=== PATIENT | male | born 1955 | race African-American/Black ===

== ENCOUNTER 2021-05-13 21:24 | Emergency (ER) | payer OTHER ==
[~2021-05-13] VITALS: Ht 190.5 cm; Wt 154.2 kg
[~2021-05-13 21:24] MED LIST: ENAL20TA8; GLIP10TA9; GLIP1TAB; WARF5TAB71
[2021-05-13 21:44] VITALS: BP 200/103
[2021-05-13 22:56] LABS: Basophils # (auto) 0.1 10 ^3/uL (0-0.2); Eosinophils # (auto) 0.1 10 ^3/uL (0-0.8); Eosinophils % (auto) 1.2 % (0.0-7.0); Hematocrit 39.9 % (41.0-53.0); Hemoglobin 13.2 g/dL (13.5-17.5); Lymphocytes # (auto) 1.4 10 ^3/uL (0.4-5.4); Lymphocytes % (auto) 21.1 % (10.0-50.0); Mean Corpuscular Hemoglobin 26.6 pg (28.0-32.0); Mean Corpuscular Hgb Conc. 33.1 g/dL (32.0-36.0); Mean Corpuscular Volume 80.5 fL (80.0-100.0); Monocytes # (auto) 0.4 10 ^3/uL (0-1.3); Monocytes % (auto) 6.6 % (0.0-12.0); Neutrophils # (auto) 4.6 10 ^3/uL (1.6-8.6); Neutrophils % (auto) 70.1 % (37.0-80.0); Nucleated Red Blood Cells % 0.1 %; Red Blood Cells 4.95 10^6/uL (4.5-5.90); Red Cell Distribution Width 18.3 % (11.8-14.3); White Blood Cell 6.6 10^3/uL (4.4-10.8)
[2021-05-13 23:16] LABS: Albumin 3.2 g/dL (3.4-5.0); Anion Gap 7 (5-15); Blood Urea Nitrogen 24 mg/dL (7-18); Calcium 8.5 mg/dL (8.5-10.1); Carbon Dioxide 23 mmol/L (21-32); Chloride 109 mmol/L (98-107); Glucose 218 mg/dL (74-106); Sodium 139 mmol/L (136-145)
[2021-05-13 23:18] LABS: Alanine Aminotransferase 58 U/L (16-61); Aspartate Aminotransferase 32 U/L (15-37); BUN/Creatinine Ratio 18.2; GFR African American 70 mL/min; GFR Non-African American 58 mL/min
[2021-05-13 23:33] LABS: Alkaline Phosphatase 112 U/L (45-117); Bilirubin, Total 0.4 mg/dL (0.2-1.0); Total Protein 7.5 g/dL (6.4-8.2)
[2021-05-14] MEDS ORDERED: GLIP10TA9 PO (02:08)
[2021-05-14] MEDS ORDERED: METF-372 PO (02:08)
[2021-05-14] MEDS ORDERED: LANC-347 XX (02:08)
== END 2021-05-14 02:21 | disposition home or self-care (01) ==
LOC: ER 21:25
DX: E11.65 Type 2 diabetes mellitus with hyperglycemia (principal); R20.2 Paresthesia of skin; R07.89 Other chest pain; E78.5 Hyperlipidemia, unspecified; I10 Essential (primary) hypertension
CPT/HCPCS: 36415; 70450; 71045; 80053; 83880; 84484; 85025; 93005

== ENCOUNTER → 2022-09-10 | Day surgery (SDC) | payer OTHER ==
[~2022-09-10] VITALS: Ht 190.5 cm; Wt 158.8 kg
[~2022-09-10] MED LIST changes: +AMIO200T33 PO; +ASPI-543 PO; +GABA100C9 PO; -GLIP10TA9; +GLIP10TA9 PO; -GLIP1TAB; +LANC-347 XX; +LIDOCAINE VISCOUS 2% 15ML UD MT ONE; +METF-372 PO; +MIDAZOLAM HCL 2MG/2ML 2ml VIAL (1mg/ml) IV ONE; +PRAV20TA3 PO; -WARF5TAB71; +WARF5TAB71 PO; +diphenhdrAMINE HCL 50 MG/1 ML VL IV ONE; +fentaNYL CITRATE 100 MCG/2 ML VL IV ONE
== END | disposition home or self-care (01) ==
LOC: CATH 07:20
PROVIDERS: ATTEND Internal Medicine
DX: I48.92 Unspecified atrial flutter (principal); I08.3 Combined rheumatic disorders of mitral, aortic and tricuspid valves; E78.00 Pure hypercholesterolemia, unspecified; E11.9 Type 2 diabetes mellitus without complications; Z79.899 Other long term (current) drug therapy; Z20.822 Contact with and (suspected) exposure to COVID-19
CPT/HCPCS: 93312; J2250; J3010; U0003; 99152

== ENCOUNTER 2022-11-05 07:12 | Day surgery (SDC) | payer OTHER ==
[~2022-11-05] VITALS: Ht 193 cm; Wt 154.5 kg
[~2022-11-05 07:12] MED LIST changes: -LIDOCAINE VISCOUS 2% 15ML UD MT ONE; -MIDAZOLAM HCL 2MG/2ML 2ml VIAL (1mg/ml) IV ONE; -WARF5TAB71 PO; -diphenhdrAMINE HCL 50 MG/1 ML VL IV ONE; -fentaNYL CITRATE 100 MCG/2 ML VL IV ONE
[2022-11-05] MEDS ORDERED: diphenhdrAMINE HCL 50 MG/1 ML VL IV ONE (07:45)
[2022-11-05] MEDS ORDERED: LIDOCAINE VISCOUS 2% 15ML UD MT ONE (07:45)
[2022-11-05] MEDS ORDERED: fentaNYL CITRATE 100 MCG/2 ML VL IV ONE (07:45)
[2022-11-05] MEDS ORDERED: MIDAZOLAM HCL 2MG/2ML 2ml VIAL (1mg/ml) IV ONE (07:45)
[2022-11-05 08:37] VITALS: BP 172/82
[2022-11-05 08:46] VITALS: BP 160/81
[2022-11-05 09:01] VITALS: BP 179/88
[2022-11-05 09:31] VITALS: BP 161/83
[2022-11-05] MEDS ORDERED: APIX5TAB PO (09:40)
[2022-11-05 09:41] VITALS: BP 147/84
[2022-11-05 09:57] VITALS: BP 161/78
== END 2022-11-05 10:14 | disposition home or self-care (01) ==
LOC: CATH 07:12
PROVIDERS: ATTEND Internal Medicine
DX: I48.92 Unspecified atrial flutter (principal); I08.0 Rheumatic disorders of both mitral and aortic valves
CPT/HCPCS: 92960; 93005; 93312; J2250; J3010; 99152

== ENCOUNTER 2023-12-20 12:23 | Emergency (ER) | payer OTHER ==
[~2023-12-20] VITALS: Ht 190.5 cm; Wt 159.3 kg
[~2023-12-20 12:23] MED LIST changes: +APIX5TAB PO; +ENAL1TAB48; -ENAL20TA8; +GABA-1308 PO; -GABA100C9 PO
[2023-12-20 13:32] VITALS: BP 156/93; PULSE 84; RESP 18; TEMP 98.4; O2SAT 100
[2023-12-20] MEDS ORDERED: HYDR-4798 PO (14:18)
== END 2023-12-20 14:30 | disposition home or self-care (01) ==
LOC: ER 12:28
DX: S83.91XA Sprain of unspecified site of right knee, initial encounter (principal); M17.11 Unilateral primary osteoarthritis, right knee; E11.9 Type 2 diabetes mellitus without complications; E78.5 Hyperlipidemia, unspecified; I10 Essential (primary) hypertension; W18.39XA Other fall on same level, initial encounter; Y93.89 Activity, other specified; Y92.89 Other specified places as the place of occurrence of the external cause; Y99.8 Other external cause status
CPT/HCPCS: 73562

== ENCOUNTER 2024-01-18 14:06 | Inpatient (IN) | payer OTHER ==
[~2024-01-18] VITALS: Ht 190.5 cm; Wt 159.4 kg
[~2024-01-18 14:06] MED LIST changes: +HYDR-4798 PO
[2024-01-18 15:30] VITALS: PULSE 105; RESP 18; O2SAT 98
[2024-01-18 15:32] LABS: Basophils # (auto) 0 10 ^3/uL (0-0.2); Basophils % (auto) 0.4 % (0.0-2.0); Eosinophils # (auto) 0 10 ^3/uL (0-0.8); Eosinophils % (auto) 0.4 % (0.0-7.0); Hematocrit 38.1 % (41.0-53.0); Hemoglobin 12.5 g/dL (13.5-17.5); Lymphocytes # (auto) 1.2 10 ^3/uL (0.4-5.4); Lymphocytes % (auto) 12.7 % (10.0-50.0); Mean Corpuscular Hemoglobin 27.2 pg (28.0-32.0); Mean Corpuscular Hgb Conc. 32.9 g/dL (32.0-36.0); Mean Corpuscular Volume 82.7 fL (80.0-100.0); Monocytes # (auto) 0.7 10 ^3/uL (0-1.3); Monocytes % (auto) 8.1 % (0.0-12.0); Neutrophils # (auto) 7.1 10 ^3/uL (1.6-8.6); Neutrophils % (auto) 78.4 % (37.0-80.0); Red Blood Cells 4.61 10^6/uL (4.5-5.90); Red Cell Distribution Width 17.7 % (11.8-14.3); White Blood Cell 9.1 10^3/uL (4.4-10.8)
[2024-01-18 15:46] LABS: Alanine Aminotransferase 16 U/L (7-40); Alkaline Phosphatase 86 U/L (46-116)
[2024-01-18 15:47] LABS: Albumin 4.3 g/dL (3.2-4.8); Anion Gap 12 (5-15); Aspartate Aminotransferase 12 U/L (13-40); BUN/Creatinine Ratio 10.8 (10.0-20.0); Bilirubin, Total 0.6 mg/dL (0.2-1.0); Blood Urea Nitrogen 13 mg/dL (9-23); Calcium 9.5 mg/dL (8.5-10.1); Carbon Dioxide 20 mmol/L (20-30); Chloride 107 mmol/L (98-107); Glucose 171 mg/dL (74-106); Potassium 3.6 mmol/L (3.5-5.1); Sodium 139 mmol/L (136-145); Total Protein 7.5 g/dL (5.7-8.2)
[2024-01-18] MEDS: VANCOMYCIN 1GM/200ML 200 ML IV ONE (15:48)
[2024-01-18 15:56] LABS: Lactic Acid w/Reflex 2.7 mmol/L (0.4-2.0)
[2024-01-18 16:13] LABS: Erythrocyte Sedimentation Rate 76 mm/hr (0-20)
[2024-01-18] MEDS: IOHEXOL 300 MG/ML 100ML BOTTLE IJ ONE (16:50)
[2024-01-18] MEDS: PIPERACILLIN-TAZOB 3.375GM 100 ML IV ONE (17:48)
[2024-01-18] MEDS: CLINDAMYCIN 900MG IV 50 ML IV ONE (18:55)
[2024-01-18] MEDS: SODIUM CHLORIDE 0.9% 1,000 ML IV ONE (18:55)
[2024-01-18] MEDS: HYDROcodone-ACET 10/325MG TAB PO ONE (19:02)
[2024-01-18 20:20] LABS: Urine Bacteria None Seen /hpf (None Seen)
[2024-01-18] MEDS ORDERED: NITROGLYCERIN 0.4 MG SL TAB SL PRN (21:00)
[2024-01-18] MEDS ORDERED: DEXTROSE (50%) 50ML SYRG IV PRN (21:00)
[2024-01-18] MEDS ORDERED: MORPHINE SULFATE INJ 2 MG/ml SYRG IV PRN (21:00)
[2024-01-18] MEDS ORDERED: ACETAMINOPHEN 325 MG TAB PO PRN (21:00)
[2024-01-18] MEDS ORDERED: ONDANSETRON HCL 4 MG/2 ML VIAL IV PRN (21:00)
[2024-01-18] MEDS ORDERED: VANCOMYCIN PER PHARMACY 0 MG IV SCH (21:00)
[2024-01-18 21:08] LABS: Urine Blood Negative /uL (Negative); Urine Clarity Clear (Clear); Urine Color Yellow (Yellow); Urine Mucus FEW (None Seen); Urine Protein, UAD 1+ (Negative); Urine Urobilinogen Normal (Negative); Urine WBC 1 /hpf (0 - 3)
[2024-01-18 21:09] LABS: Urine Specific Gravity > 1.035 (1.001-1.035)
[2024-01-18] MEDS: SODIUM CHLORIDE 0.9% 1,000 ML IV SCH (21:59)
[2024-01-18] MEDS ORDERED: PIPERACILLIN-TAZOB 3.375GM 100 ML IV SCH (22:00)
[2024-01-18 22:34] VITALS: PULSE 105; RESP 18; O2SAT 98
[2024-01-18 23:29] VITALS: BP 148/71; PULSE 84; RESP 17; TEMP 97.7; O2SAT 99
[2024-01-19] VITALS (8 sets, daily range): BP systolic 117–162; BP diastolic 62–79; PULSE 76–87; RESP 18–20; TEMP 97.7–98.4; O2SAT 96–100
[2024-01-19] MEDS: ACCU-CHEK COMFORT CURVE STRIP VI SCH (00:48)
[2024-01-19] MEDS: InsuLIN REG 1unit/0.01ml Soln (100units/ml) SC SCH (00:48)
[2024-01-19] MEDS ORDERED: AML5T PO (01:17)
[2024-01-19] MEDS: PIPERACILLIN-TAZOB 3.375GM 100 ML IV SCH (01:25)
[2024-01-19] MEDS: VANCOMYCIN 1GM/200ML 200 ML IV ONE (03:19)
[2024-01-19 05:44] LABS: Basophils # (auto) 0.1 10 ^3/uL (0-0.2); Basophils % (auto) 0.7 % (0.0-2.0); Eosinophils # (auto) 0.2 10 ^3/uL (0-0.8); Eosinophils % (auto) 2.4 % (0.0-7.0); Hematocrit 32.2 % (41.0-53.0); Hemoglobin 10.9 g/dL (13.5-17.5); Mean Corpuscular Hemoglobin 27.6 pg (28.0-32.0); Mean Corpuscular Volume 81.2 fL (80.0-100.0); Monocytes # (auto) 0.8 10 ^3/uL (0-1.3); Monocytes % (auto) 11.4 % (0.0-12.0); Neutrophils # (auto) 5.1 10 ^3/uL (1.6-8.6); Neutrophils % (auto) 71.5 % (37.0-80.0); Red Blood Cells 3.96 10^6/uL (4.5-5.90); Red Cell Distribution Width 18.1 % (11.8-14.3); White Blood Cell 7.1 10^3/uL (4.4-10.8)
[2024-01-19 05:57] LABS: Anion Gap 7 (5-15); Carbon Dioxide 25 mmol/L (20-30); Chloride 107 mmol/L (98-107); Potassium 3.2 mmol/L (3.5-5.1); Sodium 139 mmol/L (136-145)
[2024-01-19 05:59] LABS: Calcium 9.1 mg/dL (8.7-10.4)
[2024-01-19 06:03] LABS: BUN/Creatinine Ratio 14.6 (10.0-20.0); Blood Urea Nitrogen 15 mg/dL (9-23); Glucose 113 mg/dL (74-106)
[2024-01-19] MEDS: VANCOMYCIN 1GM/200ML 200 ML IV SCH (09:30)
[2024-01-19] MEDS ORDERED: VANCOMYCIN 1GM/200ML 200 ML IV SCH (10:00)
[2024-01-19 13:30] LABS: Triglycerides 81 mg/dL (< 150)
[2024-01-19 13:31] LABS: LDL Cholesterol 26 mg/dL (< 100)
[2024-01-19 13:32] LABS: Cholesterol 83 mg/dL (< 200); HDL Cholesterol 40 mg/dL (40-59)
[2024-01-19] MEDS: ATORVASTATIN 20 MG TAB PO SCH (21:47)
[2024-01-19] MEDS: HYDROcodone-ACET 5/325MG TAB PO PRN (21:48)
[2024-01-19] MEDS: LISINOPRIL 20 MG TAB PO SCH (21:48)
[2024-01-20] VITALS (10 sets, daily range): BP systolic 126–175; BP diastolic 68–82; PULSE 63–86; RESP 12–20; TEMP 96.9–98.6; O2SAT 0–100
[2024-01-20 06:06] LABS: Basophils # (auto) 0 10 ^3/uL (0-0.2); Eosinophils # (auto) 0.1 10 ^3/uL (0-0.8); Eosinophils % (auto) 2.6 % (0.0-7.0); Hematocrit 32.8 % (41.0-53.0); Lymphocytes # (auto) 0.9 10 ^3/uL (0.4-5.4); Lymphocytes % (auto) 17.6 % (10.0-50.0); Mean Corpuscular Hemoglobin 27.2 pg (28.0-32.0); Mean Corpuscular Hgb Conc. 33.4 g/dL (32.0-36.0); Mean Corpuscular Volume 81.3 fL (80.0-100.0); Monocytes # (auto) 0.5 10 ^3/uL (0-1.3); Monocytes % (auto) 9.4 % (0.0-12.0); Neutrophils # (auto) 3.5 10 ^3/uL (1.6-8.6); Neutrophils % (auto) 69.4 % (37.0-80.0); Nucleated Red Blood Cells % 0.1 %; Red Blood Cells 4.04 10^6/uL (4.5-5.90); Red Cell Distribution Width 17.5 % (11.8-14.3)
[2024-01-20 06:26] LABS: Chloride 108 mmol/L (98-107); Potassium 3.4 mmol/L (3.5-5.1); Sodium 139 mmol/L (136-145)
[2024-01-20 06:27] LABS: Anion Gap 6 (5-15); Calcium 8.7 mg/dL (8.5-10.1); Carbon Dioxide 25 mmol/L (20-30)
[2024-01-20 06:32] LABS: BUN/Creatinine Ratio 11.2 (10.0-20.0); Blood Urea Nitrogen 10 mg/dL (9-23); Glucose 148 mg/dL (74-106)
[2024-01-20] MEDS ORDERED: fentaNYL CITRATE 100 MCG/2 ML VL ONE (13:31)
[2024-01-20] MEDS ORDERED: MIDAZOLAM HCL 2MG/2ML 2ml VIAL (1mg/ml) ONE (13:32)
[2024-01-20] MEDS ORDERED: PROPOFOL 10 MG/ML 20 ML IV ONE (14:48)
[2024-01-20] MEDS ORDERED: HYDROmorphone HCL 2 MG/ML VL/or syr IV PRN ×2 (15:00)
[2024-01-21] VITALS (9 sets, daily range): BP systolic 130–176; BP diastolic 69–79; PULSE 68–102; RESP 17–20; TEMP 97.1–98.6; O2SAT 92–100
[2024-01-21 07:04] LABS: Basophils # (auto) 0 10 ^3/uL (0-0.2); Basophils % (auto) 0.9 % (0.0-2.0); Eosinophils # (auto) 0.1 10 ^3/uL (0-0.8); Hematocrit 31.9 % (41.0-53.0); Hemoglobin 10.8 g/dL (13.5-17.5); Lymphocytes # (auto) 0.7 10 ^3/uL (0.4-5.4); Mean Corpuscular Hemoglobin 27.1 pg (28.0-32.0); Mean Corpuscular Hgb Conc. 33.9 g/dL (32.0-36.0); Mean Corpuscular Volume 80.1 fL (80.0-100.0); Monocytes # (auto) 0.5 10 ^3/uL (0-1.3); Monocytes % (auto) 9.8 % (0.0-12.0); Neutrophils # (auto) 3.8 10 ^3/uL (1.6-8.6); Neutrophils % (auto) 74.3 % (37.0-80.0); Nucleated Red Blood Cells % 0.1 %; Red Blood Cells 3.99 10^6/uL (4.5-5.90); Red Cell Distribution Width 17.1 % (11.8-14.3); White Blood Cell 5.1 10^3/uL (4.4-10.8)
[2024-01-21 07:15] LABS: Anion Gap 6 (5-15); Carbon Dioxide 24 mmol/L (20-30); Chloride 108 mmol/L (98-107); Potassium 3.6 mmol/L (3.5-5.1); Sodium 138 mmol/L (136-145)
[2024-01-21 07:16] LABS: Calcium 8.6 mg/dL (8.5-10.1)
[2024-01-21 07:23] LABS: BUN/Creatinine Ratio 9.3 (10.0-20.0); Blood Urea Nitrogen 8 mg/dL (9-23); Glucose 197 mg/dL (74-106)
[2024-01-21] MEDS: hydrALAZINE HCL 20 MG/ML VL IV PRN (12:04)
[2024-01-21] MEDS: DOCUSATE SOD 100 MG CAP PO PRN (12:04)
[2024-01-22] VITALS (8 sets, daily range): BP systolic 132–155; BP diastolic 71–82; PULSE 71–90; RESP 15–20; TEMP 97.6–98.3; O2SAT 93–100
[2024-01-22 06:57] LABS: Anion Gap 6 (5-15); Calcium 8.8 mg/dL (8.7-10.4); Carbon Dioxide 24 mmol/L (20-30); Chloride 109 mmol/L (98-107); Potassium 3.6 mmol/L (3.5-5.1); Sodium 139 mmol/L (136-145)
[2024-01-22 07:03] LABS: BUN/Creatinine Ratio 6.7 (10.0-20.0); Blood Urea Nitrogen 6 mg/dL (9-23); Glucose 196 mg/dL (74-106)
[2024-01-22 07:05] LABS: Basophils # (auto) 0 10 ^3/uL (0-0.2); Basophils % (auto) 1.1 % (0.0-2.0); Eosinophils # (auto) 0.1 10 ^3/uL (0-0.8); Eosinophils % (auto) 2.6 % (0.0-7.0); Hematocrit 31.2 % (41.0-53.0); Hemoglobin 10.8 g/dL (13.5-17.5); Lymphocytes # (auto) 0.7 10 ^3/uL (0.4-5.4); Mean Corpuscular Hemoglobin 27.6 pg (28.0-32.0); Mean Corpuscular Hgb Conc. 34.5 g/dL (32.0-36.0); Mean Corpuscular Volume 80.2 fL (80.0-100.0); Monocytes # (auto) 0.4 10 ^3/uL (0-1.3); Monocytes % (auto) 8.7 % (0.0-12.0); Neutrophils # (auto) 3.1 10 ^3/uL (1.6-8.6); Neutrophils % (auto) 70.6 % (37.0-80.0); Red Blood Cells 3.89 10^6/uL (4.5-5.90); Red Cell Distribution Width 17.1 % (11.8-14.3); White Blood Cell 4.3 10^3/uL (4.4-10.8)
[2024-01-22] MEDS: ROPIVACAINE 0.5% (5MG/ML) 20ML AMPULE IJ ONE (07:32)
[2024-01-22] MEDS: ONDANSETRON HCL 4 MG/2 ML VIAL IV ONE (07:32)
[2024-01-22] MEDS: amLODIPine BESYLATE 5 MG TAB PO SCH (09:03)
[2024-01-22] MEDS: ENALAPRIL MALEATE 10 MG TAB PO SCH (09:04)
[2024-01-22] MEDS ORDERED: amLODIPine BESYLATE 5 MG TAB PO SCH (10:00)
[2024-01-22] MEDS ORDERED: ENALAPRIL MALEATE 10 MG TAB PO SCH (10:00)
[2024-01-23] VITALS (8 sets, daily range): BP systolic 122–175; BP diastolic 68–87; PULSE 65–89; RESP 16–20; TEMP 98–98.4; O2SAT 96–100
[2024-01-23] MEDS: VANCOMYCIN 1GM/200ML 200 ML IV SCH (05:25)
[2024-01-23 07:09] LABS: Anion Gap 5 (5-15); Calcium 8.7 mg/dL (8.5-10.1); Carbon Dioxide 25 mmol/L (20-30); Chloride 109 mmol/L (98-107); Potassium 3.7 mmol/L (3.5-5.1); Sodium 139 mmol/L (136-145)
[2024-01-23 07:15] LABS: BUN/Creatinine Ratio 7.3 (10.0-20.0); Blood Urea Nitrogen 7 mg/dL (9-23); Glucose 195 mg/dL (74-106)
[2024-01-23 07:16] LABS: Basophils # (auto) 0.1 10 ^3/uL (0-0.2); Basophils % (auto) 1.3 % (0.0-2.0); Eosinophils # (auto) 0.1 10 ^3/uL (0-0.8); Eosinophils % (auto) 2.3 % (0.0-7.0); Hematocrit 32.5 % (41.0-53.0); Lymphocytes # (auto) 0.8 10 ^3/uL (0.4-5.4); Lymphocytes % (auto) 18.1 % (10.0-50.0); Mean Corpuscular Hemoglobin 27.1 pg (28.0-32.0); Mean Corpuscular Hgb Conc. 33.9 g/dL (32.0-36.0); Mean Corpuscular Volume 79.9 fL (80.0-100.0); Monocytes # (auto) 0.3 10 ^3/uL (0-1.3); Monocytes % (auto) 7.6 % (0.0-12.0); Neutrophils # (auto) 3.2 10 ^3/uL (1.6-8.6); Neutrophils % (auto) 70.7 % (37.0-80.0); Red Blood Cells 4.07 10^6/uL (4.5-5.90); Red Cell Distribution Width 17.8 % (11.8-14.3); White Blood Cell 4.5 10^3/uL (4.4-10.8)
[2024-01-23] MEDS: MORPHINE SULFATE INJ 2 MG/ml SYRG IV PRN (10:44)
[2024-01-24] VITALS (7 sets, daily range): BP systolic 150–186; BP diastolic 80–103; PULSE 76–91; RESP 14–20; TEMP 97.9–99; O2SAT 93–100
[2024-01-24 10:03] LABS: INR 1.05 (0.9-1.15); Partial Thromboplastin Time 26.2 SEC (24.5-34.5); Prothrombin Time 11.1 sec (9.3-11.8)
[2024-01-24] MEDS ORDERED: METR-344 PO (15:22)
[2024-01-24] MEDS ORDERED: CEPH500C PO (15:22)
[2024-01-24] MEDS ORDERED: HYDR-4902 PO (15:28)
== END 2024-01-24 19:00 | disposition home health service (06) | DRG 571 ==
LOC: ER 14:06 → TELE 21:17 → TELE-WESTW 23:08
PROVIDERS: ADMIT Nurse Practitioner Family; ATTEND Internal Medicine
PROC: 0JBL0ZZ Excision of Right Upper Leg Subcutaneous Tissue and Fascia, Open Approach (ICD-10-PCS; principal; 2024-01-20 13:29)
DX: L02.415 Cutaneous abscess of right lower limb (principal); E87.20 Acidosis, unspecified; I44.2 Atrioventricular block, complete; I48.92 Unspecified atrial flutter; Z68.41 Body mass index [BMI] 40.0-44.9, adult; I10 Essential (primary) hypertension; E66.01 Morbid (severe) obesity due to excess calories; E11.42 Type 2 diabetes mellitus with diabetic polyneuropathy; E78.5 Hyperlipidemia, unspecified; E11.65 Type 2 diabetes mellitus with hyperglycemia; Z79.891 Long term (current) use of opiate analgesic; Z79.899 Other long term (current) drug therapy; Z79.82 Long term (current) use of aspirin; Z82.49 Family history of ischemic heart disease and other diseases of the circulatory system; Z79.4 Long term (current) use of insulin
CPT/HCPCS: 36415; 71045; 73701; 80048; 80053; 80061; 80202; 81001; 82565; 82962; 83036; 83605; 83880; 84484; 85025; 85379; 85610; 85652; 85730; 86850; 86900; 86901; 87040; 87070; 87075; 87076; 87077; 87186; 87205; 93005; 93306; 93970; 96361; 96365; 96367; G0378; J1815; J2250; J2405; J2543; J2704; J3490

== ENCOUNTER 2025-01-22 14:36 | Inpatient (IN) | payer OTHER ==
[~2025-01-22] VITALS: Ht 177.8 cm; Wt 155.0 kg
[~2025-01-22 14:36] MED LIST changes: -AMIO200T33 PO; +AML5T PO; -APIX5TAB PO; +CEPH500C PO; -HYDR-4798 PO; +HYDR-4902 PO; +METR-344 PO
--- NOTE | 2025-01-22 15:16 | ED.PDOC ---
History of Present Illness HPI Comments 69 year old male with a Hx of High lipids, PE, and DM was BIBA for the c/c of Hyperglycemia. Per EMS pt has been feeling dizziness, weakness, and SOB for the last couple of hours with no alleviating factors at this time. Per EMS pt is noted to have had a Blood sugar level of 400 on route. No other associated symptoms, modifiers, recent injuries or sick contacts present at this time. Chief Complaint: Hyperglycemia Time Seen by MD: 15:13 Primary Care Provider: MADDIE Reviewed Notes: Nurses Notes, Workers' Compensation Commissioner Notes, Medications, Allergies Allergies: Coded Allergies: NO KNOWN ALLERGIES (Unverified , 01/27/13) Home Meds Active Scripts Albuterol Sulfate (Albuterol Sulfate Hfa) 108 Mcg/Act Aer, 108 MCG IN Q4HPRN PRN, #1 AER Prov:YESY GREGG MD 01/22/25 Levofloxacin Hemihydrate (LEVAQUIN 500 MG) 500 Mg Tab, 1 TAB PO DAILY, #10 TAB Prov:YESY GREGG MD 01/22/25 Hydrocodone-Acetaminophen (Hydrocodone Bitartrate/AC 5-325 mg) 1 Tab Tab, 1 TAB PO Q6HP PRN, #14 TAB Prov:RAYSA CHEUNG MD 01/24/24 Metronidazole (Flagyl) 500 Mg Tab, 1 TAB PO TID, #42 TAB Prov:RAYSA CHEUNG MD 01/24/24 Cephalexin Monohydrate (Cephalexin) 500 Mg Cap, 1 CAP PO QID, #56 CAP Prov:RAYSA CHEUNG MD 01/24/24 Lancets (Freestyle Lancets) Lancets Mis, UNITS XX PRN, #30 0 Refills Prov:FRANSICO REARDON MD 05/14/21 Metformin Hydrochloride (Metformin Hcl) 1,000 Mg Tab, 1 TAB PO BID for 14 Days, #28 TAB 0 Refills Prov:FRANSICO REARDON MD 05/14/21 Reported Medications Amlodipine Besylate (NORVASC TABLET) 5 Mg Tb, 1 TAB PO DAILY, #30 TAB 5 Refills 01/19/24 Pravastatin Sodium (PRAVACHOL TABLET) 20 Mg Tb, 40 MG PO QPM for HIGH CHOLESTEROL, TAB 09/07/22 Aspirin (Aspir-Low) 81 Mg Tab, 81 MG PO DAILY for PREVENT BLOOD CLOTS, MG 09/07/22 Gabapentin (Gabapentin) 100 Mg Cap, 100 MG PO DAILY for NEUROPATHY, MG 09/07/22 Enalapril Maleate (Enalapril Maleate) 20 Mg Tab, DAILY for HTN 01/27/13 Glipizide (Glipizide) 10 Mg Tab, PO BID 07/23/12 Information Source: Patient, Emergency Med Personnel Mode of Arrival: EMS Severity: Moderate Timing: Hours Duration: Since onset, Hours Prehospital treatment: Accucheck Past Medical History PAST MEDICAL HISTORY: DM, High Lipids, HTN, PE Surgical History: Denies all surgeries Family History Family History: Reviewed,noncontributory to illness Social History Smoker: Non-Smoker Alcohol: Denies ETOH Use Drugs: Denies Drug Use Lives In: Home Constitutional: reports: weakness; denies: chills, diaphoresis, fatigue, fever, malaise, sweats, others EENTM: denies: blurred vision, double vision, ear bleeding, ear discharge, ear drainage, ear pain, ear ringing, eye pain, eye redness, hearing loss, mouth pain, mouth swelling, nasal discharge, nose bleeding, nose congestion, nose pain, photophobia, tearing, throat pain, throat swelling, voice changes, others Respiratory: reports: SOB at rest, shortness of breath; denies: cough, hemoptysis, orthopnea, SOB with excertion, stridor, wheezing, others Cardiovascular: denies: chest pain, dizzy spells, diaphoresis, Dyspnea on exertion, edema, irregular heart beat, left arm pain, lightheadedness, palpitations, PND, syncope, others Gastrointestinal: denies: abdomen distended, abdominal pain, blood streaked bowels, constipated, diarrhea, dysphagia, difficulty swallowing, hematemesis, melena, nausea, poor appetite, poor fluid intake, rectal bleeding, rectal pain, vomiting, others Genitourinary: denies: burning, dysuria, flank pain, frequency, hematuria, incontinence, penile discharge, penile sore, pain, testicle pain, testicle swelling, urgency, others Neurological: reports: dizziness; denies: fainting, headache, left sided numbness, left sided weakness, numbness, paresthesia, pre-existing deficit, right sided numbness, right sided weakness, seizure, speech problems, tingling, tremors, weakness, others Musculoskeletal: denies: back pain, gout, joint pain, joint swelling, muscle pain, muscle stiffness, neck pain, others Integumetry: denies: bruises, change in color, change in hair/nails, dryness, laceration, lesions, lumps, rash, wounds, others Allergic/Immunocompromised: denies: Difficulty Healing, Frequent Infections, Hives, Itching, others Hematologic/Lymphatic: denies: anemia, blood clots, easy bleeding, easy bruising, swollen glands, others Endocrine: denies: excessive hunger, excessive sweating, excessive thirst, excessive urination, flushing, intolerance to cold, intolerance to heat, unexplained weight gain, unexplained weight loss, others Psychiatric: denies: anxiety, bipolar disorder, depression, hopeless, panic disorder, schizophrenia, sleepless, suicidal, others All Other Systems: Reviewed and Negative Physical Exam General Appearance: Moderate Distress, Normal HEENT: Normal ENT Inspection, Pharynx Normal, TMs Normal Neck: Full Range of Motion, Non-Tender, Normal, Normal Inspection Respiratory: Chest Non-Tender, Lungs Clear, No Accessory Muscle Use, No Respiratory Distress, Normal Breath Sounds Cardiovascular: No Edema, No JVD, No Murmur, No Gallop, Normal Peripheral Pulses, Tachycardia Breast Exam: Deferred Gastrointestinal: No Organomegaly, Non Tender, No Pulsatile Mass, Normal Bowel Sounds, Soft Genitalia: Deferred Pelvic: Deferred Rectal: Deferred Extremities: No calf tenderness, Normal capillary refill, Normal inspection, Normal range of motion, Non-tender, No pedal edema Musculoskeletal : Apperance: Normal Neurologic: Alert, informatics developer II-XII nml as Tested, No Motor Deficits, Normal Affect, Normal Mood, No Sensory Deficits Cerebellar Function: NOT DONE Reflexes: NOT DONE Skin: Dry, Normal Color, Warm Peripheral Pulses: 3+ Radial (R), 3+ Radial (L) Lymphatic: No Adenopathy Was a procedure done? Was a procedure done?: No Differential Dx Considerations may include: NSTEMI Hypertension X-Ray, Labs, Meds, VS Vital Signs Date Time Temp Pulse Resp B/P (MAP) Pulse Ox O2 Delivery O2 Flow Rate FiO2 01/22/25 17:00 108 14 138/90 (106) 96 01/22/25 14:51 99.0 110 22 130/97 (108) 99 99.0 Lab Test 01/22/25 16:36 01/22/25 15:19 Range/Units Troponin I High Sensitivity 993 *H 567 *H </=54 ng/L White Blood Count 8.7 4.4-10.8 10^3/uL Red Blood Count 4.98 4.5-5.90 10^6/uL Hemoglobin 13.4 L 13.5-17.5 g/dL Hematocrit 40.3 L 41.0-53.0 % Mean Corpuscular Volume 81.0 80.0-100.0 fL Mean Corpuscular Hemoglobin 27.0 L 28.0-32.0 pg Mean Corpuscular Hemoglobin Concent 33.4 32.0-36.0 g/dL Red Cell Distribution Width 19.1 H 11.8-14.3 % Platelet Count 137 L 140-450 10^3/uL Mean Platelet Volume 8.2 6.9-10.8 fL Neutrophils (%) (Auto) 86.0 H 37.0-80.0 % Lymphocytes (%) (Auto) 7.7 L 10.0-50.0 % Monocytes (%) (Auto) 5.9 0.0-12.0 % Eosinophils (%) (Auto) 0.1 0.0-7.0 % Basophils (%) (Auto) 0.3 0.0-2.0 % Neutrophils # (Auto) 7.5 1.6-8.6 10 ^3/uL Lymphocytes # (Auto) 0.7 0.4-5.4 10 ^3/uL Monocytes # (Auto) 0.5 0-1.3 10 ^3/uL Eosinophils # (Auto) 0 0-0.8 10 ^3/uL Basophils # (Auto) 0 0-0.2 10 ^3/uL Nucleated Red Blood Cells 0.1 % Sodium Level 140 136-145 mmol/L Potassium Level 3.8 3.5-5.1 mmol/L Chloride Level 105 98-107 mmol/L Carbon Dioxide Level 18 L 20-31 mmol/L Anion Gap 17 H 5-15 Blood Urea Nitrogen 22 9-23 mg/dL Creatinine 1.64 H 0.700-1.30 mg/dL Glomerular Filtration Rate Calc 45 >90 mL/min BUN/Creatinine Ratio 13.4 10.0-20.0 Serum Glucose 338 H 74-106 mg/dL Calcium Level 9.5 8.7-10.4 mg/dL Current Medications Medications (Trade) Dose Ordered Sig/Susan Route Start Time Stop Time Status Last Admin Enoxaparin Sodium (Lovenox) 150 mg ONCE ONCE SC 01/22/25 16:15 01/22/25 16:16 DC 01/22/25 16:22 Piperacillin Sod/ Tazobactam Sod 100 ml @ 100 mls/hr ONCE ONCE IV 01/22/25 16:15 01/22/25 17:14 DC 01/22/25 16:15 Okay patient alert. Came in for shortness a breath chest discomfort. Vitals stable. Answering questions. Blood sugar elevated. Cardiac marker elevated. EKG reviewed does not show any acute changes. WBC within normal limits. [facility] Reviewed [facility] history. Cardiac marker elevated. Was given Lovenox. Cardiology consultation. Explained to the patient. Continue monitoring. Time of 1ST Reevaluation: 15:43 Reevaluation 1ST: Unchanged Patient Education/Counseling: Diagnosis, Treatment, Need For Follow Up Family Education/Counseling: No Family Present SEPSIS Sepsis Screen Date sepsis recognized/suspect: Jan 22, 2025 Time Sepsis recognized/suspect: 1449 Recent Procedure: No On Antibiotic Therapy: No Respiratory Rate >20: Yes Heart Rate >90: Yes Temp<36 C (96.8 F) or >38.3 C: No SBP <90 or MAP <65 mmHG: No New Acute Mental Status Change: No Is the patient on CPAP, BIPAP,: No Physician Orders Chest Portable (01/22/25 15:07) Troponin-I Hs (01/22/25 17:01) Electrocardigram (01/22/25 16:02) Electrocardigram (01/22/25 17:02) Electrocardigram (01/22/25 19:02) *Consult Dr.Mukeshchandra Link (01/22/25 16:07) Sodium Chloride 0.9% (01/22/25 16:45) Admit (01/22/25 17:13) Nitroglycerin Sublingual (Ntrostat Subli (01/22/25 17:15) Morphine Sulfate Injection (01/22/25 17:15) Stat Ekg For Chest Pain (01/22/25 17:13) Notify Md Of Changes From Base (01/22/25 17:13) Toxicology Teacher For 24 Hours (01/22/25 17:13) Emergency Dysrhythmia Protocol (01/22/25 17:13) Rhythm Strips Once Every Shift (01/22/25 17:13) Oxygen By Nasal Cannula (01/22/25 17:13) Complete Blood Count (01/23/25 05:00) Complete Blood Count (01/24/25 05:00) Complete Blood Count (01/25/25 05:00) Basic Metabolic Panel (01/23/25 05:00) Basic Metabolic Panel (01/24/25 05:00) Basic Metabolic Panel (01/25/25 05:00) Cardiac Diet-2gna,Lofat,Lochol (01/22/25 Dinner) Npo (Nothing By Mouth) Diet (01/23/25 Breakfast) *Consult Dr. Bran (01/22/25 17:13) Glucose Blood (Accu-Chek Comfort Curve T (01/22/25 18:00) Insulin R (Human) (Insulin R) (01/22/25 18:00) Dextrose 50% Syringe (01/22/25 17:15) Consistent Carb(Ccho)Diabetes (01/22/25 Dinner) Enoxaparin Sodium (Lovenox) (01/22/25 22:00) Piperacillin-Tazob 3.375gm (Zosyn 3.375g (01/22/25 18:00) Hydralazine Injection (Apresoline Inject (01/22/25 17:30) Vital Signs Date Time Temp Pulse Resp B/P (MAP) Pulse Ox O2 Delivery O2 Flow Rate FiO2 01/22/25 17:00 108 14 138/90 (106) 96 01/22/25 14:51 99.0 110 22 130/97 (108) 99 99.0 Laboratory Tests Test 01/22/25 15:19 White Blood Count 8.7 10^3/uL (4.4-10.8) Medications Medications Dose Ordered Sig/Susan Route Start Time Stop Time Status Last Admin Dose Admin Enoxaparin Sodium 150 mg ONCE ONCE SC 01/22/25 16:15 01/22/25 16:16 DC 01/22/25 16:22 Piperacillin Sod/ Tazobactam Sod 100 ml @ 100 mls/hr ONCE ONCE IV 01/22/25 16:15 01/22/25 17:14 DC 01/22/25 16:15 Departure 1 Departure Time of Disposition: 16:03 Impression: Primary Impression: NSTEMI (non-ST elevated myocardial infarction) Additional Impressions: Pneumonitis Uncontrolled diabetes mellitus Qualified Codes: E13.65 - Other specified diabetes mellitus with hyperglycemia Disposition: ADMITTED INPATIENT Admit to: Med Surg Condition: Guarded e-Prescriptions Albuterol Sulfate (Albuterol Sulfate Hfa) 108 Mcg/Act Aer 108 MCG IN Q4HPRN PRN, #1 AER Prov: YESY GREGG MD 01/22/25 Levofloxacin Hemihydrate (LEVAQUIN 500 MG) 500 Mg Tab 1 TAB PO DAILY, #10 TAB Prov: YESY GREGG MD 01/22/25 Critical Care Note Critical Care Time?: Yes (90 min-critical care time only) Critical care comment: Cardiac marker elevated. Stability Stability form required: No Heart Score Heart Score: Heart Score Response (Comments) Value History Slightly Suspicious 0 EKG Normal 0 Age >65 2 Risk Factors >3 or Hx ASHD 2 Troponin >3 x's Normal limit 2 Total 6 I personally scribed for PARVIZ GOOD MD ([email or web address]) on 01/22/25 at 15:16. Electronically submitted by Jasvir Pastrana ([email or web address]). PARVIZ GOOD MD Jan 22, 2025 15:16
[2025-01-22 15:32] LABS: Hematocrit 40.3 % (41.0-53.0); Hemoglobin 13.4 g/dL (13.5-17.5); Mean Corpuscular Hemoglobin 27.0 pg (28.0-32.0); Mean Corpuscular Volume 81.0 fL (80.0-100.0); Nucleated Red Blood Cells % 0.1 %
--- NOTE | 2025-01-22 15:35 | DVH ---
EXAM: XY CHEST PORTABLE HISTORY: sob COMPARISON: XY CHEST XRAY 1 VIEW on DOS: 01/24/24, XY CHEST PORTABLE on DOS: 01/18/24, TRANSESOPH ECHOCA RDIOGRAM on DOS: 11/05/22, TRANSESOPH ECHOCARDIOGRAM on DOS: 09/10/22, CHEST XRAY 1 VIEW on DOS: TECHNIQUE: Portable upright AP view of the chest was performed. FINDINGS: No pneumothorax, consolidative infiltrates, or pulmonary edema. There is central peribronchial thicke kameron. The heart is borderline enlarged. There is abundant overlying adipose tissue. IMPRESSION: 1. Reactive airways disease. 2. Obesity.
[2025-01-22 15:43] LABS: Chloride 105 mmol/L (98-107); Potassium 3.8 mmol/L (3.5-5.1); Sodium 140 mmol/L (136-145)
[2025-01-22 15:44] LABS: Anion Gap 17 (5-15); Calcium 9.5 mg/dL (8.7-10.4); Carbon Dioxide 18 mmol/L (20-31)
[2025-01-22 15:49] LABS: BUN/Creatinine Ratio 13.4 (10.0-20.0); Blood Urea Nitrogen 22 mg/dL (9-23)
[2025-01-22 15:56] LABS: Glucose 338 mg/dL (74-106)
[2025-01-22] MEDS: PIPERACILLIN-TAZOB 3.375GM 100 ML IV ONE (16:15)
[2025-01-22] MEDS ORDERED: LEVO500T91 PO (16:19)
[2025-01-22] MEDS ORDERED: ALBU108A5 IN (16:19)
[2025-01-22] MEDS: ENOXAPARIN SOD 150 MG/1 ML SYRINGE SC ONE (16:22)
[2025-01-22] MEDS ORDERED: SODIUM CHLORIDE 0.9% 250 ML IV ONE (16:30)
[2025-01-22] MEDS: SODIUM CHLORIDE 0.9% 1,000 ML IV ONE (16:45)
[2025-01-22] MEDS ORDERED: MORPHINE SULFATE INJ 2 MG/ml SYRG IV PRN (17:15)
[2025-01-22] MEDS ORDERED: NITROGLYCERIN 0.4 MG SL TAB SL PRN (17:15)
[2025-01-22] MEDS ORDERED: DEXTROSE (50%) 50ML SYRG IV PRN (17:15)
[2025-01-22] MEDS ORDERED: HEPARIN SODIUM (PORCINE) 5000 UNITS/ML 1ML VIAL IV ONE (17:45)
[2025-01-22] MEDS: InsuLIN REG 1unit/0.01ml Soln (100units/ml) SC SCH (18:00)
[2025-01-22] MEDS: InsuLIN REG 1unit/0.01ml Soln (100units/ml) IV ONE (18:04)
[2025-01-22 18:07] LABS: Hematocrit 41.4 % (41.0-53.0); Hemoglobin 13.8 g/dL (13.5-17.5); Mean Corpuscular Hemoglobin 27.1 pg (28.0-32.0); Mean Corpuscular Volume 81.0 fL (80.0-100.0); Nucleated Red Blood Cells % 0.1 %
[2025-01-22 18:20] LABS: INR 1.06 (0.9-1.15); Partial Thromboplastin Time 28.0 SEC (24.5-34.5); Prothrombin Time 11.2 sec (9.3-11.8)
[2025-01-22] MEDS: ACCU-CHEK COMFORT CURVE STRIP VI SCH (18:23)
--- NOTE | 2025-01-22 18:57 | DVHINCON2 ---
DATE OF CONSULTATION: 01/22/2025 HISTORY OF PRESENT ILLNESS: The patient was seen stat in the Emergency Room long holiday, 01/22 at approximately 4:30 p.m. as per the request from Dr. Owusu, seen with a nurse, Destin. History obtained from the patient, -[place] gentleman. He states that he had a sweating episode. He is short of breath with an exertion. When he walks, heart rate goes up to 120. He has a history of hypertension, diabetes, and also past medical history of chronic kidney disease. Previous history includes he has a history of atrial fibrillation. He has also electrical cardioversion done by Dr. Bran about 2 years ago, came back to sinus rhythm. He getting Eliquis for that one. MEDICATIONS: He is getting: * [place]. * Flagyl. * Keflex. * Linzess. * He is getting metformin 1 tablet twice a day. * Amlodipine every day. * Pravachol 20 mg a day. * Aspirin 81 mg a day. * Enalapril. * Glipizide 10 mg a day. * Gabapentin 100 mg a day. SOCIAL HISTORY: No smoke, no alcohol, no drugs. Troponin went up from 567 to more than 900. EKG revealed sinus rhythm. No acute changes. Incomplete right bundle-branch block pattern, tachycardia noted. DIAGNOSES: * [id number] myocardial infarction. * Uncontrolled diabetes with blood sugar went even up to 400 and he is feeling dizziness, tachycardia, and short of breath. * Chronic kidney disease. * Hypertension. * Dyslipidemia. * Obesity. ASSESSMENT AND PLAN: I talked to Dr. Owusu for 3 times. I also called Dr. Bran and discussed the patient has been known to Dr. Bran, and he agreed that he will do the angiogram. I saw the patient with a nurse, Destin, in the Emergency Room. I gave all the orders to Destin, do not give Eliquis, give aspirin, metoprolol, and heparin drip. Dr. Bran will schedule the angiogram. Discussed with patient agreed. Dr. Owusu also will talk to Dr. Bran. Lopez Castillo MD MP/MICHELLE/ANI/NIS TID: [id number] RECEIPT: [id number] MTDD
[2025-01-22 19:38] VITALS: BP 145/90; PULSE 108; RESP 16; TEMP 98.1; O2SAT 96
[2025-01-22 20:25] VITALS: BP 145/90; PULSE 108; RESP 16; TEMP 98.1; O2SAT 96
[2025-01-22] MEDS ORDERED: IBUP-1454 PO (20:33)
[2025-01-22] MEDS ORDERED: PANT1INJ3 IV (20:33)
[2025-01-22] MEDS ORDERED: METF-372 PO (20:33)
[2025-01-22] MEDS ORDERED: AMOX500C2 PO (20:33)
[2025-01-22] MEDS: PIPERACILLIN-TAZOB 3.375GM 100 ML IV SCH (21:03)
[2025-01-22] MEDS: METOPROLOL TARTRATE 25 MG TAB PO SCH (21:13)
[2025-01-22] MEDS ORDERED: ENOXAPARIN SOD 150 MG/1 ML SYRINGE SC SCH (22:00)
[2025-01-22 22:20] VITALS: BP 138/89; PULSE 99; RESP 17; TEMP 97.7; O2SAT 97
[2025-01-22 23:00] VITALS: PULSE 100; RESP 16; O2SAT 97
[2025-01-23] VITALS (7 sets, daily range): BP systolic 101–162; BP diastolic 68–105; PULSE 78–94; RESP 17–20; TEMP 96–98.4; O2SAT 94–97
[2025-01-23] MEDS: HEPARIN DRIP/D5W 100UNITS/ML 250 ML IV SCH ×3 (04:50→21:35)
--- NOTE | 2025-01-23 06:41 | ECG ---
[facility] Test Date: 2025-01-22 Test Time: 17:10:16 Pat Name: MOHSEN HEATH Department: ED Room: 0287T A Gender: M Personal Care Home Administrator: KAEL : 1955 Requested By: PARVIZ GOOD Order Number: [id number] Reading MD: Ralf Merino Measurements Intervals [place] Rate: 106 P: 71 MI: 181 QRS: -37 QRSD: 142 T: -3 QT: 361 QTc: 480 Interpretive Statements Sinus tachycardia Atrial premature complex Right bundle branch block Electronically Signed On 01-28-2025 18:15:29 PDT by Ralf Merino Please click the below link to view image of tracing.
--- NOTE | 2025-01-23 07:11 | DVHHP2 ---
Admitting Diagnosis: cp History of Present Illness HPI 69 M who comes to ER for SOB and weakness over the last few days. When he arrived to ER his initial troponin was 567 and then uptrended to >1K. He was evaluated by cardiology and recommended to start heparin gtt and plan for inpatient angiogram. Patient admitted to tele with cardiology consult. Home Meds Active Scripts Albuterol Sulfate (Albuterol Sulfate Hfa) 108 Mcg/Act Aer, 108 MCG IN Q4HPRN PRN, #1 AER Prov:YESY GREGG MD 01/22/25 Levofloxacin Hemihydrate (LEVAQUIN 500 MG) 500 Mg Tab, 1 TAB PO DAILY, #10 TAB Prov:YESY GREGG MD 01/22/25 Hydrocodone-Acetaminophen (Hydrocodone Bitartrate/AC 5-325 mg) 1 Tab Tab, 1 TAB PO Q6HP PRN, #14 TAB Prov:RAYSA CHEUNG MD 01/24/24 Metronidazole (Flagyl) 500 Mg Tab, 1 TAB PO TID, #42 TAB Prov:RAYSA CHEUNG MD 01/24/24 Cephalexin Monohydrate (Cephalexin) 500 Mg Cap, 1 CAP PO QID, #56 CAP Prov:RAYSA CHEUNG MD 01/24/24 Lancets (Freestyle Lancets) Lancets Mis, UNITS XX PRN, #30 0 Refills Prov:FRANSICO REARDON MD 05/14/21 Metformin Hydrochloride (Metformin Hcl) 1,000 Mg Tab, 1 TAB PO BID for 14 Days, #28 TAB 0 Refills Prov:FRANSICO REARDON MD 05/14/21 Reported Medications Ibuprofen (Ibuprofen) 600 Mg Tab, 1 TAB PO TID, #90 TAB 01/22/25 Amoxicillin Trihydrate (Amoxicillin) 500 Mg Cap, 1 CAP PO BID, #20 CAP 01/22/25 Metformin Hydrochloride (Metformin Hcl) 1,000 Mg Tab, 1 TAB PO BID, #60 TAB 5 Refills 01/22/25 Pantoprazole Sodium (PANTOPRAZOLE SODIUM) 40 Mg Inj, 40 MG IV, INJ 01/22/25 Amlodipine Besylate (NORVASC TABLET) 5 Mg Tb, 1 TAB PO DAILY, #30 TAB 5 Refills 01/19/24 Pravastatin Sodium (PRAVACHOL TABLET) 20 Mg Tb, 40 MG PO QPM for HIGH CHOLESTEROL, TAB 09/07/22 Aspirin (Aspir-Low) 81 Mg Tab, 81 MG PO DAILY for PREVENT BLOOD CLOTS, MG 09/07/22 Gabapentin (Gabapentin) 100 Mg Cap, 100 MG PO DAILY for NEUROPATHY, MG 09/07/22 Enalapril Maleate (Enalapril Maleate) 20 Mg Tab, DAILY for HTN 01/27/13 Glipizide (Glipizide) 10 Mg Tab, PO BID 07/23/12 Past Medical History Cardiac: HTN, Hyperlipidemia Central Nervous System: No pertinent Hx Hemotology/Oncology: No pertinent Hx Hepatobiliary: No pertinent Hx Infectious Disease: No peritnent Hx Endocrine: NIDDM Patient Family History: Hypertension G8 MOTHER G8 FATHER (UNKNOWN MEDICAL HISTORY) Review of Systems Constitutional: No symptom reported Pulmonary/Respiratory: Dyspnea Cardiovascular: Chest Pain Gastrointestinal: No symptom reported Genitourinary: No symptom reported Musculoskeletal: No symptom reported Skin: No symptom reported H&P Exam Vital Signs Vital Signs Date Time Temp Pulse Resp B/P (MAP) Pulse Ox O2 Delivery O2 Flow Rate FiO2 01/23/25 05:00 98.1 81 18 134/94 (107) 95 98.1 01/22/25 23:00 Room Air* 0 21 General Appeara: Well developed Neck Exam: Other Nasal Exam: Normal inspection Pulmonary/Respiratory: Decreased breath sounds Cardiovascular/Chest: Tachycardia Labs/Xrays Labs Test 01/23/25 05:12 01/22/25 17:48 01/22/25 15:19 Range/Units POC Glucose 179 H 70-106 mg/dl White Blood Count 8.9 4.4-10.8 10^3/uL Red Blood Count 5.11 4.5-5.90 10^6/uL Hemoglobin 13.8 13.5-17.5 g/dL Hematocrit 41.4 41.0-53.0 % Mean Corpuscular Volume 81.0 80.0-100.0 fL Mean Corpuscular Hemoglobin 27.1 L 28.0-32.0 pg Mean Corpuscular Hemoglobin Concent 33.4 32.0-36.0 g/dL Red Cell Distribution Width 18.8 H 11.8-14.3 % Platelet Count 139 L 140-450 10^3/uL Mean Platelet Volume 8.1 6.9-10.8 fL Neutrophils (%) (Auto) 88.4 H 37.0-80.0 % Lymphocytes (%) (Auto) 6.0 L 10.0-50.0 % Monocytes (%) (Auto) 5.2 0.0-12.0 % Eosinophils (%) (Auto) 0.1 0.0-7.0 % Basophils (%) (Auto) 0.3 0.0-2.0 % Neutrophils # (Auto) 7.9 1.6-8.6 10 ^3/uL Lymphocytes # (Auto) 0.5 0.4-5.4 10 ^3/uL Monocytes # (Auto) 0.5 0-1.3 10 ^3/uL Eosinophils # (Auto) 0 0-0.8 10 ^3/uL Basophils # (Auto) 0 0-0.2 10 ^3/uL Nucleated Red Blood Cells 0.1 % Troponin I High Sensitivity 1276 *H </=54 ng/L Prothrombin Time 11.2 9.3-11.8 sec Prothrombin Time INR 1.06 0.9-1.15 Activated Partial Thromboplast Time 28.0 24.5-34.5 SEC Sodium Level 140 136-145 mmol/L Potassium Level 3.8 3.5-5.1 mmol/L Chloride Level 105 98-107 mmol/L Carbon Dioxide Level 18 L 20-31 mmol/L Anion Gap 17 H 5-15 Blood Urea Nitrogen 22 9-23 mg/dL Creatinine 1.64 H 0.700-1.30 mg/dL Glomerular Filtration Rate Calc 45 >90 mL/min BUN/Creatinine Ratio 13.4 10.0-20.0 Serum Glucose 338 H 74-106 mg/dL Calcium Level 9.5 8.7-10.4 mg/dL Assessment/Plan Primary Diagnosis 1) NSTEMI 2) HTN 3) HLD 4) Obesity 5) DM 6) Hx of PE plan; admit tele, heparin gtt, asa, lipitor, BB, echo ordered, cardio consult, daily labs, will follow along, ISS with accu check Plan discussed with: Other (n) EYSY GREGG MD Jan 23, 2025 07:11
[2025-01-23] MEDS: ATORVASTATIN 20 MG TAB PO SCH (09:21)
--- NOTE | 2025-01-23 10:19 | DVHPN2 ---
Consult Progress Note Subjective Other Systems: Patient denies any chest pain at time of assessment, remains on heparin drip per ACS protocol. Patient is in normal sinus rhythm with right bundle branch block on ekg monitor Objective vital signs Vital Sign Date Time Temp Pulse Resp B/P (MAP) Pulse Ox O2 Delivery O2 Flow Rate FiO2 01/23/25 09:22 80 162/105 01/23/25 08:43 96.0 20 97 96.0 01/23/25 07:51 Room Air* 0 21 medications Current Medications Medications Dose Ordered Sig/Susna Route Start Time Stop Time Status Last Admin Dose Admin Nitroglycerin 0.4 mg Q5MINP PRN SL 01/22/25 17:15 Morphine Sulfate 2 mg Q30M PRN IV 01/22/25 17:15 Diagnostic Test (Pha) 1 strip Q6HR 01/22/25 18:00 01/23/25 06:07 1 STRIP Insulin Human Regular Q6HR SC 01/22/25 18:00 01/23/25 06:07 4 UNITS Dextrose 50 ml UD PRN IV 01/22/25 17:15 Piperacillin Sod/ Tazobactam Sod 100 ml @ 100 mls/hr Q6HR IV 01/22/25 18:00 01/23/25 06:06 100 MLS/HR Hydralazine HCl 10 mg Q4HPRN PRN IV 01/22/25 17:30 Aspirin 81 mg DAILY PO 01/23/25 10:00 01/23/25 09:21 81 MG Atorvastatin Calcium 80 mg DAILY PO 01/23/25 10:00 01/23/25 09:21 80 MG Metoprolol Tartrate 25 mg BID PO 01/22/25 22:00 01/23/25 09:22 25 MG Heparin Sodium/ Dextrose 250 ml @ 10 mls/hr Q24H IV 01/23/25 04:00 01/23/25 04:50 10 MLS/HR Examination: GENERAL:Normal, LUNGS:Normal, CVS:Normal, NEURO:Normal laboratory and microbiology Laboratory Tests 01/22/25 17:48 01/22/25 15:19 Test 01/22/25 15:19 Range/Units Serum Glucose 338 H 74-106 mg/dL Problem List/Assessment/Plan Problem List/Assessment/Plan NSTEMI, rule out coronary artery disease Rule out structural heart disease Hypertension History of atrial fibrillation/Flutter status post CHINMAY with direct current cardioversion in 2022(Off NOAC) Dyslipidemia Type 2 diabetes mellitus TIA Morbid obesity Plan/recommendations (): * Transthoracic echocardiogram to evaluate cardiac function * Chest pain protocol * HEART score: 7 points * NAT score: 3 points * Continue heparin drip per ACS protocol * Single antiplatelet therapy and lipid-lowering agent * Blood pressure control * Close Cardiac surveillance * Coronary angiogram Case discussed with . Given the patient's clinical presentation, twelve lead electrocardiogram, and elevated troponin level, the patient may benefit from a coronary angiogram left heart catheterization. The procedure was discussed with the patient in full detail including risks and benefits. Risks include but are not limited to bleeding, contrast-induced nephropathy, stroke, and even . The patient understands and is agreeable to undergo the procedure. We will schedule the patient at soonest availability on 01/25/2025. Thank you for allowing us to care for this patient. Please call with any questions or concerns. This medical document was created using an electronic medical record system with voice recognition software and computerized dictation system. Although this document has been carefully reviewed, there might still be some phonetic and typographical errors. Occasional wrong-word or ``sound-alike substitutions may have occurred due to the inherent limitations of voice recognition software. These areas are purely typographical due to imperfections of the software programs and do not reflect any compromise in the patient's medical care. Please read the chart carefully and recognize, using context, where these substitutions have occurred. Plan discussed with: Patient Date of Service: Jan 23, 2025 Billing Provider: PASCUAL BRISENO Common Visit Codes: [id number] INP/OBS CARE(HIGH) PASCUAL BRISENO Jan 23, 2025 10:19
[2025-01-23 11:25] LABS: Hematocrit 40.9 % (41.0-53.0); Hemoglobin 14.1 g/dL (13.5-17.5); Mean Corpuscular Hemoglobin 27.3 pg (28.0-32.0); Mean Corpuscular Volume 79.2 fL (80.0-100.0); Nucleated Red Blood Cells % 0.1 %
[2025-01-23 11:40] LABS: Chloride 106 mmol/L (98-107); Potassium 3.6 mmol/L (3.5-5.1); Sodium 140 mmol/L (136-145)
[2025-01-23 11:41] LABS: Anion Gap 13 (5-15); Calcium 10.0 mg/dL (8.7-10.4); Carbon Dioxide 21 mmol/L (20-31)
[2025-01-23 11:42] LABS: INR 1.04 (0.9-1.15); Partial Thromboplastin Time 40.9 SEC (24.5-34.5); Prothrombin Time 11.0 sec (9.3-11.8)
[2025-01-23 11:46] LABS: BUN/Creatinine Ratio 14.8 (10.0-20.0); Blood Urea Nitrogen 19 mg/dL (9-23)
[2025-01-23 11:47] LABS: Glucose 181 mg/dL (74-106)
--- NOTE | 2025-01-23 11:54 | CONS ---
Pharmacy Clinical Information: INCREASE HEPARIN DRIP RATE TO 1200 UNITS/HR PER APTT OF 40.9 (SUBTHERAPEUTIC) NEXT APTT SCHEDULED FOR 1800 PER RX PROTOCOL AUDRA GIANG PHARMACIST Jan 23, 2025 11:54
[2025-01-23 12:03] LABS: Triglycerides 87.0 mg/dL (< 150)
[2025-01-23 12:04] LABS: Magnesium 1.8 mg/dL (1.6-2.6)
[2025-01-23 12:05] LABS: Cholesterol 153.0 mg/dL (< 200); HDL Cholesterol 53.0 mg/dL (40-59)
[2025-01-23 18:37] LABS: INR 1.03 (0.9-1.15); Partial Thromboplastin Time 42.9 SEC (24.5-34.5); Prothrombin Time 10.9 sec (9.3-11.8)
[2025-01-24] VITALS (9 sets, daily range): BP systolic 106–147; BP diastolic 67–107; PULSE 63–89; RESP 17–20; TEMP 97.4–98.5; O2SAT 96–99
[2025-01-24 02:45] LABS: INR 1.03 (0.9-1.15); Partial Thromboplastin Time 48.7 SEC (24.5-34.5); Prothrombin Time 10.9 sec (9.3-11.8)
[2025-01-24] MEDS: HEPARIN DRIP/D5W 100UNITS/ML 250 ML IV SCH (03:01)
--- NOTE | 2025-01-24 07:11 | DVHPN2 ---
Progress Note Date Seen: Jan 24, 2025 Has the PT tested + for MRSA If YES, has PT been informed?: No Medical Necessity Reason Pt with a Central, PICC or Fol: No Subjective Patient reports: No new complaints Review of Systems: HEENT:Normal, CVS:Normal, RESPIRATORY:Abnormal Objective vital signs Vital Sign Date Time Temp Pulse Resp B/P (MAP) Pulse Ox O2 Delivery O2 Flow Rate FiO2 01/24/25 05:00 97.6 79 18 133/86 (102) 99 97.6 01/23/25 20:00 Room Air* 0 21 Total Intake and Output 01/23/25 01/23/25 01/24/25 15:00 23:00 07:00 Intake Total 440 ml 340 ml 760 ml Output Total 900 ml 400 ml Balance 440 ml -560 ml 360 ml medications Current Medications Medications Dose Ordered Sig/Susan Route Start Time Stop Time Status Last Admin Dose Admin Nitroglycerin 0.4 mg Q5MINP PRN SL 01/22/25 17:15 Morphine Sulfate 2 mg Q30M PRN IV 01/22/25 17:15 Diagnostic Test (Pha) 1 strip Q6HR 01/22/25 18:00 01/24/25 06:15 1 STRIP Insulin Human Regular Q6HR SC 01/22/25 18:00 01/24/25 06:16 2 UNITS Dextrose 50 ml UD PRN IV 01/22/25 17:15 Piperacillin Sod/ Tazobactam Sod 100 ml @ 100 mls/hr Q6HR IV 01/22/25 18:00 01/24/25 06:15 100 MLS/HR Hydralazine HCl 10 mg Q4HPRN PRN IV 01/22/25 17:30 Aspirin 81 mg DAILY PO 01/23/25 10:00 01/23/25 09:21 81 MG Atorvastatin Calcium 80 mg DAILY PO 01/23/25 10:00 01/23/25 09:21 80 MG Metoprolol Tartrate 25 mg BID PO 01/22/25 22:00 01/23/25 21:29 25 MG Heparin Sodium/ Dextrose 250 ml @ 16 mls/hr [id number] IV 01/24/25 03:00 01/24/25 03:01 16 MLS/HR Examination: GENERAL:Normal, LUNGS:Normal, CVS:Normal, CVS:Abnormal laboratory and microbiology Laboratory Tests 01/23/25 10:42 Test 01/23/25 10:42 Range/Units Serum Glucose 181 #H 74-106 mg/dL Problem List/Assessment/Plan Problem List/Assessment/Plan 1) NSTEMI 2) HTN 3) HLD 4) Obesity 5) DM 6) Hx of PE plan; remains in heparin gtt, awaiting AM labs not drawn yet, echo done and not read yet, NPO after midnight, cardio to plan for angiogram in the AM, continue all care, daily labs, will follow along Plan discussed with: Other YESY GREGG MD Jan 24, 2025 07:11
[2025-01-24 09:24] LABS: Hematocrit 38.9 % (41.0-53.0); Hemoglobin 13.1 g/dL (13.5-17.5); Mean Corpuscular Hemoglobin 27.1 pg (28.0-32.0); Mean Corpuscular Volume 80.2 fL (80.0-100.0); Nucleated Red Blood Cells % 0.1 %
[2025-01-24 09:30] LABS: Sodium 141 mmol/L (136-145)
[2025-01-24 09:31] LABS: Anion Gap 11 (5-15); Calcium 9.4 mg/dL (8.7-10.4); Carbon Dioxide 23 mmol/L (20-31)
[2025-01-24 09:36] LABS: BUN/Creatinine Ratio 14.5 (10.0-20.0); Blood Urea Nitrogen 20 mg/dL (9-23)
[2025-01-24 09:40] LABS: INR 1.06 (0.9-1.15); Partial Thromboplastin Time 60.8 SEC (24.5-34.5); Prothrombin Time 11.2 sec (9.3-11.8)
[2025-01-24 09:41] LABS: Chloride 107 mmol/L (98-107); Glucose 265 mg/dL (74-106); Potassium 3.5 mmol/L (3.5-5.1)
[2025-01-24] MEDS: LACTULOSE 20Gm/30ML SOLN PO ONE (14:34)
[2025-01-24 15:38] LABS: INR 1.04 (0.9-1.15); Partial Thromboplastin Time 61.9 SEC (24.5-34.5); Prothrombin Time 11.0 sec (9.3-11.8)
--- NOTE | 2025-01-24 16:53 | MEDREC ---
[facility] Intervention Section I [facility] Intervention: Review courses of therapy (PLEASE CONSIDER D/C ANTIBIOTIC IN ABSENCE OF BACTERIAL INFECTION) MATI LEMUS PHARMACIST Jan 24, 2025 16:53
[2025-01-24] MEDS: DOCUSATE SOD 100 MG CAP PO SCH (21:24)
[2025-01-24 21:26] LABS: INR 1.04 (0.9-1.15); Partial Thromboplastin Time 58.1 SEC (24.5-34.5); Prothrombin Time 11.0 sec (9.3-11.8)
[2025-01-25] VITALS (15 sets, daily range): BP systolic 128–194; BP diastolic 67–101; PULSE 68–122; RESP 14–24; TEMP 97.5–98.2; O2SAT 92–100
[2025-01-25 06:23] LABS: Anion Gap 11 (5-15); Calcium 9.5 mg/dL (8.7-10.4); Carbon Dioxide 23 mmol/L (20-31); Hematocrit 39.5 % (41.0-53.0); Hemoglobin 13.5 g/dL (13.5-17.5); Mean Corpuscular Hemoglobin 27.2 pg (28.0-32.0); Mean Corpuscular Volume 79.8 fL (80.0-100.0); Nucleated Red Blood Cells % 0.1 %; Potassium 3.8 mmol/L (3.5-5.1); Sodium 144 mmol/L (136-145)
[2025-01-25 06:29] LABS: BUN/Creatinine Ratio 16.3 (10.0-20.0); Blood Urea Nitrogen 21 mg/dL (9-23)
[2025-01-25 06:34] LABS: Chloride 110 mmol/L (98-107); Glucose 136 mg/dL (74-106)
[2025-01-25] MEDS: IODIXANOL 320MG/ML 100ML BTL IV ONE (09:22)
[2025-01-25] MEDS: VERAPAMIL 2.5MG/ML INJ 2ML VIAL IV ONE (09:31)
[2025-01-25] MEDS: fentaNYL CITRATE 100 MCG/2 ML VL ONE (09:31)
[2025-01-25] MEDS: ANGIOMAX 250 MG VIAL IV ONE (09:31)
[2025-01-25] MEDS: HEPARIN SODIUM (PORCINE) 5000 UNITS/ML 1ML VIAL ONE (09:31)
[2025-01-25] MEDS: MIDAZOLAM HCL 2MG/2ML 2ml VIAL (1mg/ml) ONE (09:32)
[2025-01-25] MEDS: SODIUM CHL 0.9% 0 ML ONE (09:32)
[2025-01-25] MEDS: LIDOCAINE 2%HCL (LOCAL ANESTH.) INJ 20ML MDV ONE (09:32)
--- NOTE | 2025-01-25 10:16 | DVHPN2 ---
Progress Note Date Seen: Jan 25, 2025 Has the PT tested + for MRSA If YES, has PT been informed?: No Medical Necessity Reason Pt with a Central, PICC or Fol: No Subjective Patient reports: Feels better Other Systems: cath was - Objective vital signs Vital Sign Date Time Temp Pulse Resp B/P (MAP) Pulse Ox O2 Delivery O2 Flow Rate FiO2 01/25/25 08:51 98.2 72 17 153/95 (114) 98 98.2 01/25/25 08:00 Room Air* 0 21 Total Intake and Output 01/24/25 01/24/25 01/25/25 15:00 23:00 07:00 Intake Total 340 ml 1200 ml 450 ml Output Total 4 ml Balance 340 ml 1196 ml 450 ml medications Current Medications Medications Dose Ordered Sig/Susan Route Start Time Stop Time Status Last Admin Dose Admin Nitroglycerin 0.4 mg Q5MINP PRN SL 01/22/25 17:15 Morphine Sulfate 2 mg Q30M PRN IV 01/22/25 17:15 Diagnostic Test (Pha) 1 strip Q6HR 01/22/25 18:00 01/25/25 05:41 1 STRIP Insulin Human Regular Q6HR SC 01/22/25 18:00 01/24/25 23:33 12 UNITS Dextrose 50 ml UD PRN IV 01/22/25 17:15 Hydralazine HCl 10 mg Q4HPRN PRN IV 01/22/25 17:30 Aspirin 81 mg DAILY PO 01/23/25 10:00 01/24/25 09:15 81 MG Atorvastatin Calcium 80 mg DAILY PO 01/23/25 10:00 01/24/25 09:15 80 MG Metoprolol Tartrate 25 mg BID PO 01/22/25 22:00 01/24/25 21:25 25 MG Heparin Sodium/ Dextrose 250 ml @ 16 mls/hr [id number] IV 01/24/25 03:00 01/24/25 18:51 16 MLS/HR Docusate Sodium 100 mg BID PO 01/24/25 22:00 01/24/25 21:24 100 MG Examination: GENERAL:Abnormal, HEENT:Abnormal, LUNGS:Abnormal, CVS:Abnormal, ABDOMEN:Abnormal laboratory and microbiology Laboratory Tests 01/25/25 05:09 Test 01/25/25 05:09 Range/Units Serum Glucose 136 #H 74-106 mg/dL Problem List/Assessment/Plan Problem List/Assessment/Plan nstemi morbid obesity moderate chronic LV dysfunction hx of AF s/p rosalie/dccv in past currently SR cont home meds outpt holter daily asa Plan discussed with: Patient My Orders My Orders Orders - SHONNA MONTEIRO MD Procedure Category Date Status Time Cl Left Heart Cath CL 01/25/25 Taken 09:20 Date of Service: Jan 25, 2025 Billing Provider: SHONNA MONTEIRO MD Common Visit Codes: NOT BILLABLE SHONNA MONTEIRO MD Jan 25, 2025 10:16
--- NOTE | 2025-01-25 10:18 | DVHOP2 ---
Operative Report Operative Report [facility]ARDI[facility] PROCEDURE REPORT [place], [place] Date of Service: 01/25/25 Director Of Plant Operations: Shonna Monteiro MD PROCEDURES PERFORMED: Coronary angiogram, , conscious sedation administration and supervision, less than 15 minutes; fluoroscopy use and interpretation. PREOPERATIVE DIAGNOSES: NSTEMI POSTOP DIAGNOSIS: NICM DESCRIPTION OF PROCEDURE: The patient or appropriate family signed informed consent understanding the risks, benefits and alternatives of the procedure, they wished to proceed. The patient was brought to the cardiac technology lab teacher [place]. The patient was prepped in a sterile fashion. Sedation was used per cardiac cath protocol. I administered 2 mL of 2% lidocaine to the right wrist. With an antegrade front wall puncture. I cannulated the right radial artery and placed a 6-Hebrew Glidesheath slender. Next, an intra-arterial spasmolytic was administered. Next, a - 6French Mobile catheter and XXXXX guide and were used for coronary angiogram and LVEDP measurement and pressure pullback. At the completion of procedure, all guides and wires were removed, and there were no immediate complications. 1500 U of IV heparin given. pt was on heparin gtt FINDINGS: RCA: Moderate vessel off the right sinus of Valsalva, there is no severe flow limiting stenosis. LEFT MAIN: Moderate size left main, it bifurcates into LAD and circumflex. no stenosis CIRCUMFLEX: Moderate caliber vessel coming off the left main with no flow limiting stenosis. LAD: LAD is a moderate caliber vessel coming of the left main. no stenosis CONCLUSIONS: 1. no severe cad noted 2. pt is in SR PLAN: Aggressive risk factor modification and medical management for the patient. SHONNA MONTEIRO MD Jan 25, 2025 10:18
[2025-01-25] MEDS: hydrALAZINE HCL 20 MG/ML VL IV PRN (10:43)
[2025-01-25] MEDS: ONDANSETRON HCL 4 MG/2 ML VIAL IV ONE (10:43)
--- NOTE | 2025-01-25 11:04 | DVHDS2 ---
New Physician D'charge PN Admitting Diagnosis Admitting Diagnosis nstemi Discharge Diagnosis nstemi s/p negative cath, no CAD noted on cath Operations or Procedures cardiac cath, negative no evidence of CAD Reason(s) For Hospitalization Surgery Hospital Course 69 M who comes to ER for CP and SOB. He had al elevated troponin of >1100 and was admitted started on heparin gtt. Cardiology saw him and took him to bobcat driver/labor and angiogram revealed NO CAD. He was cleared for dc home by cardiology. His CBC and chem panel are nml. He will continue his home meds as prescribed and will follow up outpt with his primary causticiser. Jeanne to arrange for all outpt follow up. Treatment Plan Discharge Condition of Discharge Good Disposition Home Discharge Instructions Diet: Cardiac 2g Na,low cholest Activity: No Restrictions, As Tolerated Medications: see med sheet Follow Up Care Follow Up/Referral: pcp cardio Discharge Statement: "Patient was advised to return to the ER or call 911 if any headaches, dizziness, shortness of breath, chest pain, abdominal pain, bleeding, fevers, or worsening of medical condition. Patient was counseled about treatment plan, medications, possible side effects, patientverbalized understanding. All questions were answered to the best of my ability. This discharge took greater then 30 minutes in planning, reviewing documentation, counseling the patient, and discussing with other team members." YESY GREGG MD Jan 25, 2025 11:04
[2025-01-25] MEDS: DIGOXIN (250MCG/ML) 2 ML AMPULE IV ONE (15:38)
[2025-01-25] MEDS: MECLIZINE HCL 25 MG TAB PO ONE (18:29)
[2025-01-25] MEDS: ONDANSETRON HCL 4 MG/2 ML VIAL IV PRN (22:18)
[2025-01-26] VITALS (7 sets, daily range): BP systolic 134–170; BP diastolic 78–101; PULSE 80–98; RESP 16–20; TEMP 97.7–98.3; O2SAT 91–99
--- NOTE | 2025-01-26 07:48 | ECG ---
[facility] Test Date: 2025-01-25 Test Time: 11:27:16 Pat Name: MOHSEN HEATH Department: Room: 0287T A Gender: M Rn Care Transition: DONNY : 1955 Requested By: SHONNA MONTEIRO Order Number: [id number] Reading MD: Ralf Merino Measurements Intervals [place] Rate: 98 P: 0 SD: 0 QRS: -37 QRSD: 146 T: -7 QT: 382 QTc: 487 Interpretive Statements Atrial fibrillation Left axis deviation Right bundle branch block Moderate voltage criteria for LVH, may be normal variant T wave abnormality, consider lateral ischemia or digitalis effect Electronically Signed On 01-28-2025 19:16:55 PDT by Ralf Merino Please click the below link to view image of tracing.
[2025-01-26] MEDS: MECLIZINE HCL 25 MG TAB PO ONE (12:05)
[2025-01-26] MEDS ORDERED: MECL25CH38 PO (12:35)
--- NOTE | 2025-01-26 22:05 | DVH ---
Procedure: CT HEAD WITHOUT CONTRAST Study Date and Requested Time: 01/26/2025 09:21 PM History: Vertigo Comparison: HEAD WITHOUT CONTRAST on DOS: 05/13/21 Dose: CTDI: 59.31 mGy DLP: 950.6 mGycm Technique: Multiplanar images obtained through the brain without intravenous contrast. Findings: Diffuse brain atrophy. Mild chronic small vessel ischemic changes. 3 mm focus of hypodensity within t he bilateral thalamus. No hemorrhages, masses, mass effect, midline shift, herniation or cytotoxic edema following a large v ascular territory. No intra-axial or extra-axial fluid collections. No evidence of hydrocephalus. The basal cisterns are patent. The pituitary gland, sella and parasellar regions are unremarkable. The cerebellar tonsils are in nor mal position. The cerebellum is unremarkable. The orbits and globes are unremarkable. The paranasal sinuses and mastoids are clear. There are no wo rrisome calvarial lesions. 3 x 3.9 x 3.2 cm left suboccipital subcutaneous fat lipoma. Impression: Focus of hypodensity within the bilateral thalamus which may represent lacunar infarcts of unknown ch ronicity, possibly chronic. Otherwise, No evidence of acute intracranial abnormality. If symptoms per sist, MRI should be considered for further evaluation.
[2025-01-27] VITALS (8 sets, daily range): BP systolic 140–171; BP diastolic 77–100; PULSE 68–89; RESP 18–19; TEMP 97.6–98.1; O2SAT 94–99
[2025-01-27 09:32] LABS: Hematocrit 42.0 % (41.0-53.0); Hemoglobin 14.0 g/dL (13.5-17.5); Mean Corpuscular Hemoglobin 27.1 pg (28.0-32.0); Mean Corpuscular Volume 81.5 fL (80.0-100.0); Nucleated Red Blood Cells % 0.2 %
[2025-01-27 09:48] LABS: Potassium 3.7 mmol/L (3.5-5.1); Sodium 144 mmol/L (136-145)
[2025-01-27 09:49] LABS: Anion Gap 11 (5-15); Calcium 9.9 mg/dL (8.7-10.4); Carbon Dioxide 25 mmol/L (20-31)
[2025-01-27 09:54] LABS: BUN/Creatinine Ratio 12.0 (10.0-20.0); Blood Urea Nitrogen 14 mg/dL (9-23)
[2025-01-27 10:10] LABS: Chloride 108 mmol/L (98-107); Glucose 226 mg/dL (74-106)
--- NOTE | 2025-01-27 11:20 | DVH ---
PROCEDURE: MRI BRAIN HEAD WO CONTRAST Indication: cva COMPARISON: 01/26/2025 TECHNIQUE: Multiplanar multisequence images of the brain are obtained. FINDINGS: There is m diffusion restriction within the right parietal centrum semiovale /subcortical region dia uring 1.4 cm. Small region of diffusion restriction in the right parietal centrum semiovale measuring 10 mm. Left occipital diffusion restriction in the subcortical region measuring up to 5 mm. Right me dullary diffusion restriction measuring 4 mm. There are moderate periventricular and subcortical whit e matter T2 and FLAIR hyperintense changes. There is no intracranial hemorrhage. No extra-axial fluid collection, mass effect or midline shift. The ventricles are midline and normal in size. The cistern s are patent. Normal intracranial flow voids are preserved. No abnormal susceptibility signal. The sinuses and mastoids are well pneumatized. The visualized orbits are unremarkable. A 1.4 cm right parotid T2 bright lesion IMPRESSION: Multiple regions of acute infarction involving the right parietal centrum semiovale / subcortical reg ion measuring 1.4 cm, right parietal centrum semiovale measuring 10 mm, left occipital subcortical re gion measuring 5 mm and right medullary region measuring 5 mm. Moderate chronic microvascular ischemic changes. A 1.4 cm right parotid T2 bright lesion. Recommend MRI of the neck with and [facility]. Differential considerations would include intraparotid lymph node, mass/malignancy.
[2025-01-27] MEDS: MECLIZINE HCL 25 MG TAB PO PRN (11:24)
--- NOTE | 2025-01-27 13:45 | DVH ---
Procedure: CT ANGIO HEAD/Neck HISTORY: cva Comparison Study: None Exam Date:01/27/2025 01:12 PM TECHNIQUE: CTA head without and with intravenous contrast. CTA neck with intravenous contrast. 3D [place] [employer] postprocessing was performed and images were used for interpretation and reporting. Radiation Dose : CT Dose: CTDI volume is 25 mGy. Dose-length product is 250 mGy*cm FINDINGS: CTA head: There is normal enhancement of the visualized distal internal carotid, anterior and middle cerebral a rteries. There is a normal anterior communicating artery complex. There are bilateral posterior commu nicating arteries. The vertebral, basilar, cerebellar and posterior cerebral arteries are within norm al limits. The early parenchymal enhancement is grossly unremarkable. The visualized intracranial swetha ous structures are grossly unremarkable. CTA neck: The visualized thoracic aortic arch and proximal great vessels are unremarkable. The left common, int ernal and external carotid arteries are within normal limits. The right common, internal and external carotid arteries are within normal limits. The cervical segments of the right and left vertebral art eries are within normal limits. The limited visualized lung apices are clear. The surrounding soft ti ssues and osseous structures are otherwise unremarkable. IMPRESSION: No evidence of hemodynamically significant intracranial stenosis, proximal occlusion or aneurysm. No evidence of hemodynamically significant cervical stenosis or dissection. CAROTID STENOSIS REFERENCE Distal internal carotid artery diameter as the denominator for stenosis measurement: MILD = <50% stenosis. MODERATE = 50-69% stenosis. SEVERE = 70-89% stenosis. CRITICAL = 90-99% stenosis. OCCLUDED = 100% stenosis. All CT scans at this medical facility are performed using dose modulation techniques as appropriate t o a performed exam including the following: Automated exposure control was utilized; adjustment of th e MA and/or KV according to patient size; and use of iterative reconstruction technique.
[2025-01-27] MEDS: IOHEXOL 350 MG/ML 100ML IJ ONE (14:25)
--- NOTE | 2025-01-27 17:37 | DVHPN2 ---
Progress Note Date Seen: Jan 27, 2025 Has the PT tested + for MRSA If YES, has PT been informed?: No Medical Necessity Reason Pt with a Central, PICC or Fol: No Subjective Patient reports: No new complaints Review of Systems: HEENT:Abnormal Objective vital signs Vital Sign Date Time Temp Pulse Resp B/P (MAP) Pulse Ox O2 Delivery O2 Flow Rate FiO2 01/27/25 16:37 97.6 89 18 157/81 (106) 94 97.6 01/27/25 08:00 Room Air* 0 21 Total Intake and Output 01/26/25 01/26/25 01/27/25 15:00 23:00 07:00 Intake Total 500 ml 800 ml Output Total 750 ml 600 ml Balance -250 ml 200 ml medications Current Medications Medications Dose Ordered Sig/Susan Route Start Time Stop Time Status Last Admin Dose Admin Nitroglycerin 0.4 mg Q5MINP PRN SL 01/22/25 17:15 Morphine Sulfate 2 mg Q30M PRN IV 01/22/25 17:15 Diagnostic Test (Pha) 1 strip Q6HR 01/22/25 18:00 01/27/25 13:04 1 STRIP Insulin Human Regular Q6HR SC 01/22/25 18:00 01/27/25 06:15 2 UNITS Dextrose 50 ml UD PRN IV 01/22/25 17:15 Hydralazine HCl 10 mg Q4HPRN PRN IV 01/22/25 17:30 01/27/25 06:11 10 MG Aspirin 81 mg DAILY PO 01/23/25 10:00 01/27/25 11:13 81 MG Atorvastatin Calcium 80 mg DAILY PO 01/23/25 10:00 01/27/25 11:15 80 MG Docusate Sodium 100 mg BID PO 01/24/25 22:00 01/27/25 11:23 100 MG Ondansetron HCl 4 mg Q4HPRN PRN IV 01/25/25 21:15 01/25/25 22:18 4 MG Meclizine HCl 25 mg Q8HPRN PRN PO 01/26/25 14:45 01/27/25 11:24 25 MG Examination: GENERAL:Normal, LUNGS:Normal, CVS:Normal, NEURO:Abnormal laboratory and microbiology Laboratory Tests 01/27/25 08:52 Test 01/27/25 08:52 Range/Units Serum Glucose 226 H 74-106 mg/dL Problem List/Assessment/Plan Problem List/Assessment/Plan 1) NSTEMI s/p cath which was negative 2) Acute CVA as noted on MRI 3) HLD 4) HTN 5) DM 6) HLD 7) Hx of PE plan; patient had cardiac cath on 01/25 and showed no obstructive CAD and patient was cleared cardiac aviles for DC home however he began to complain of blurry vision and dizziness thus MRI brain was ordered and showed acute CVA, neurology is now consulted, echo has been done but not read, head/neck CTA showed no acute findings, he is already on asa 81 daily and Lipitor 80 mg daily, continue all supportive care, daily labs Plan discussed with: Other (n) YESY GREGG MD Jan 27, 2025 17:37
--- NOTE | 2025-01-27 19:24 | ECG ---
[facility] Test Date: 2025-01-27 Test Time: 17:20:26 Pat Name: MOHSEN HEATH Department: Room: 0287T A Gender: M Title Clerk: DENICE : 1955 Requested By: YESY GREGG Order Number: [id number] Reading MD: Ralf Merino Measurements Intervals [place] Rate: 81 P: 52 ID: [id number] QRS: -49 QRSD: 138 T: -64 QT: 464 QTc: 539 Interpretive Statements Sinus rhythm RBBB and LAFB Left ventricular hypertrophy Electronically Signed On 01-28-2025 19:17:40 PDT by Ralf Merino Please click the below link to view image of tracing.
--- NOTE | 2025-01-27 20:56 | DVHSR ---
APPROVED REPORT EXAM: LIMITED Two-dimensional and M-mode echocardiogram with Doppler and color Doppler. Blood Pressure: 134/94 mmHg INDICATION NSTEMI RISK FACTORS Obesity: Height: 5'10, Weight: 350 DIMENSIONS LVDd4.1 (3.8-5.7cm)LA (2D)4.1 (1.9-4.0cm)Aortic Root3.7 (2.0-3.7cm) LVDs2.9 (2.5-4.0cm)LA (MM) (1.9-4.0cm)Aortic Cusp Exc1.2 (1.5-2.0cm) EF (%) 55.0 (55-70%)Rt. Atrium5.5 (1.9-4.0cm)Asc. Aorta cm IVSd1.4 (0.7-1.1cm)RV (D)6.2 (1.8-2.4cm) PWd1.0 (0.7-1.1cm) Mitral Valve MitralMitral Stenosis E wave0.55m/sMV Mean GR.mmHg A wave0.71m/sMV Peak GR.mmHg E/A ratio0.82D MVAcm2 DECEL [id number] 1/2 Timems Aortic Valve Aortic ValveAortic Stenosis V10.86m/Ramila Mean GR.9mmHg V21.92m/Ramila Peak GR.15mmHg LVOT Diameter2.7 (1.8-2.4cm)Doppler AVA2.56cm2 Tricuspid Valve TR Velocity2.61m/s [id number] Conclusion MILD LVH AND MILD LV DIASTOLIC DYSFUNCTION LV EF IS 55% REMARKABLY DILATED RV AND IS HYPOKINETIC MODERATELY DILATED RA RVSP IS 51 MM OF HG AND IS VERY HIGH IT IS RV FAILURE AND SEVERE PULMONARY HYPERTENSION HEAVILY CALCIFIED AORTIC LEAFLETS MILD AORTIC STENOSIS NO EFFUSION
--- NOTE | 2025-01-27 22:27 | DVHINCON2 ---
Date of service: Jan 27, 2025 Referring Physician Abundio Gregg MD Reason for Consultation Dizziness, visual disturbance History of Present Illness 69 y/o RHM seen for evaluation regarding visual disturbance and dizziness. Patient has a cardiac history significant for previous atrila flutter s/p cardioversion, reports having been on anticoagulation at some point in time in the past. Has long standing fluctuating dizziness, worsened with hed movement. Admitted January 22 due to worsing SOB and ELIZABETH. Diagnosed with NSTEMI and underwent cardiac cath January 25. Immediately post pocedure describes having increased severity of dizziness along with visual disturbance described as perciving his visual field as tilted. Denies any focal deficits, otherwise. Head CT scan performed was unremarkable for definitive acute pathology. Subsequent brain MRI performed earlier today showed multifocal punctate acute infarcts in multiple vascular distributions. Past Medical History Significant for HTN, DM, dysipidemia, obesity, atrial flutter, PE Family History: Hypertension G8 MOTHER G8 FATHER (UNKNOWN MEDICAL HISTORY) Allergies: Coded Allergies: NO KNOWN ALLERGIES (Unverified , 01/27/13) Home Meds Active Scripts Meclizine HCl (Meclizine) 25 Mg Chw, 25 MG PO TIDP PRN for 30 Days, #90 CHW 1 Refill Prov:YESY GREGG MD 01/26/25 Albuterol Sulfate (Albuterol Sulfate Hfa) 108 Mcg/Act Aer, 108 MCG IN Q4HPRN PRN, #1 AER Prov:YESY GREGG MD 01/22/25 Levofloxacin Hemihydrate (LEVAQUIN 500 MG) 500 Mg Tab, 1 TAB PO DAILY, #10 TAB Prov:YESY GREGG MD 01/22/25 Hydrocodone-Acetaminophen (Hydrocodone Bitartrate/AC 5-325 mg) 1 Tab Tab, 1 TAB PO Q6HP PRN, #14 TAB Prov:RAYSA CHEUNG MD 01/24/24 Lancets (Freestyle Lancets) Lancets Mis, UNITS XX PRN, #30 0 Refills Prov:FRANSICO REARDON MD 05/14/21 Metformin Hydrochloride (Metformin Hcl) 1,000 Mg Tab, 1 TAB PO BID for 14 Days, #28 TAB 0 Refills Prov:FRANSICO REARDON MD 05/14/21 Reported Medications Ibuprofen (Ibuprofen) 600 Mg Tab, 1 TAB PO TID, #90 TAB 01/22/25 Metformin Hydrochloride (Metformin Hcl) 1,000 Mg Tab, 1 TAB PO BID, #60 TAB 5 Refills 01/22/25 Pantoprazole Sodium (PANTOPRAZOLE SODIUM) 40 Mg Inj, 40 MG IV, INJ 01/22/25 Amlodipine Besylate (NORVASC TABLET) 5 Mg Tb, 1 TAB PO DAILY, #30 TAB 5 Refills 01/19/24 Pravastatin Sodium (PRAVACHOL TABLET) 20 Mg Tb, 40 MG PO QPM for HIGH CHOLESTEROL, TAB 09/07/22 Aspirin (Aspir-Low) 81 Mg Tab, 81 MG PO DAILY for PREVENT BLOOD CLOTS, MG 09/07/22 Gabapentin (Gabapentin) 100 Mg Cap, 100 MG PO DAILY for NEUROPATHY, MG 09/07/22 Enalapril Maleate (Enalapril Maleate) 20 Mg Tab, DAILY for HTN 01/27/13 Glipizide (Glipizide) 10 Mg Tab, PO BID 07/23/12 Discontinued Reported Medications Amoxicillin Trihydrate (Amoxicillin) 500 Mg Cap, 1 CAP PO BID, #20 CAP 01/22/25 Discontinued Scripts Metronidazole (Flagyl) 500 Mg Tab, 1 TAB PO TID, #42 TAB Prov:RAYSA CHEUNG MD 01/24/24 Cephalexin Monohydrate (Cephalexin) 500 Mg Cap, 1 CAP PO QID, #56 CAP Prov:RAYSA CHEUNG MD 01/24/24 Vital Signs Vital Signs Date Time Temp Pulse Resp B/P (MAP) Pulse Ox O2 Delivery O2 Flow Rate FiO2 01/27/25 21:00 98.0 81 18 167/90 (115) 98 98.0 01/27/25 08:00 Room Air* 0 21 Labs/Diagnostic Data Labs Test 01/27/25 18:29 01/27/25 08:52 01/24/25 20:57 01/23/25 10:42 Range/Units POC Glucose 310 H 70-106 mg/dl White Blood Count 6.4 4.4-10.8 10^3/uL Red Blood Count 5.16 4.5-5.90 10^6/uL Hemoglobin 14.0 13.5-17.5 g/dL Hematocrit 42.0 41.0-53.0 % Mean Corpuscular Volume 81.5 80.0-100.0 fL Mean Corpuscular Hemoglobin 27.1 L 28.0-32.0 pg Mean Corpuscular Hemoglobin Concent 33.3 32.0-36.0 g/dL Red Cell Distribution Width 20.3 H 11.8-14.3 % Platelet Count 144 140-450 10^3/uL Mean Platelet Volume 8.2 6.9-10.8 fL Neutrophils (%) (Auto) 73.4 37.0-80.0 % Lymphocytes (%) (Auto) 16.8 10.0-50.0 % Monocytes (%) (Auto) 8.3 0.0-12.0 % Eosinophils (%) (Auto) 0.8 0.0-7.0 % Basophils (%) (Auto) 0.7 0.0-2.0 % Neutrophils # (Auto) 4.7 1.6-8.6 10 ^3/uL Lymphocytes # (Auto) 1.1 0.4-5.4 10 ^3/uL Monocytes # (Auto) 0.5 0-1.3 10 ^3/uL Eosinophils # (Auto) 0.1 0-0.8 10 ^3/uL Basophils # (Auto) 0 0-0.2 10 ^3/uL Nucleated Red Blood Cells 0.2 % Sodium Level 144 136-145 mmol/L Potassium Level 3.7 3.5-5.1 mmol/L Chloride Level 108 H 98-107 mmol/L Carbon Dioxide Level 25 20-31 mmol/L Anion Gap 11 5-15 Blood Urea Nitrogen 14 9-23 mg/dL Creatinine 1.17 0.700-1.30 mg/dL Glomerular Filtration Rate Calc 67 >90 mL/min BUN/Creatinine Ratio 12.0 10.0-20.0 Serum Glucose 226 H 74-106 mg/dL Calcium Level 9.9 8.7-10.4 mg/dL Prothrombin Time 11.0 9.3-11.8 sec Prothrombin Time INR 1.04 0.9-1.15 Activated Partial Thromboplast Time 58.1 H 24.5-34.5 SEC Hemoglobin A1c 8.1 H <5.7 % A1C Magnesium Level 1.8 1.6-2.6 mg/dL Triglycerides Level 87 < 150 mg/dL Cholesterol Level 153 < 200 mg/dL LDL Cholesterol 74 < 100 mg/dL HDL Cholesterol 53 40-59 mg/dL Thyroid Stimulating Hormone (TSH) 0.58 0.55-4.78 uIU/mL Test 01/22/25 17:48 Range/Units Troponin I High Sensitivity 1276 *H </=54 ng/L Assessment - Acute multifocal ischemic stroke, likely cardioembolic - History of atrial flutter - NSTEMI s/p cardiac cath - Chronic vertigo, probable peripheral vestibulopathy - Obesity Consider starting anticoagulation for stroke prophylaxis ( patient has elevated [id number] score). Follow up echo results. Maintain aggressive risk factor modification. MARTINA SPRAGUE MD Jan 27, 2025 22:27
[2025-01-28 01:00] VITALS: BP 169/87; PULSE 60; RESP 18; TEMP 98.1; O2SAT 99
[2025-01-28 05:00] VITALS: BP 158/92; PULSE 90; RESP 18; TEMP 98.3; O2SAT 97
[2025-01-28 07:40] VITALS: PULSE 96
[2025-01-28 08:25] VITALS: PULSE 91; RESP 14; O2SAT 97
[2025-01-28 09:00] VITALS: BP 154/95; PULSE 91; RESP 14; TEMP 98; O2SAT 97
[2025-01-28] MEDS ORDERED: ATOR20TA50 PO (12:26)
[2025-01-28] MEDS ORDERED: APIX5TAB PO (12:31)
[2025-01-28 13:00] VITALS: BP 141/67; PULSE 89; RESP 14; TEMP 97.7; O2SAT 100
--- NOTE | 2025-01-28 14:14 | DVHPN2 ---
Progress Note - Dictate Has the PT tested + for MRSA If YES, has PT been informed?: No Medical Necessity Reason Pt with a Central, PICC or Fol: No vital signs Vital Sign Date Time Temp Pulse Resp B/P (MAP) Pulse Ox O2 Delivery O2 Flow Rate FiO2 01/28/25 09:00 98.0 91 14 154/95 (114) 97 98.0 01/28/25 08:25 Room Air* 0 21 Total Intake and Output 01/27/25 01/27/25 01/28/25 15:00 23:00 07:00 Intake Total 1040 ml 775 ml Output Total 980 ml 450 ml Balance 60 ml 325 ml medications Current Medications Medications Dose Ordered Sig/Susan Route Start Time Stop Time Status Last Admin Dose Admin Nitroglycerin 0.4 mg Q5MINP PRN SL 01/22/25 17:15 Morphine Sulfate 2 mg Q30M PRN IV 01/22/25 17:15 Diagnostic Test (Pha) 1 strip Q6HR 01/22/25 18:00 01/28/25 11:37 1 STRIP Insulin Human Regular Q6HR SC 01/22/25 18:00 01/28/25 11:48 8 UNITS Dextrose 50 ml UD PRN IV 01/22/25 17:15 Hydralazine HCl 10 mg Q4HPRN PRN IV 01/22/25 17:30 01/28/25 06:22 10 MG Aspirin 81 mg DAILY PO 01/23/25 10:00 01/28/25 10:29 81 MG Atorvastatin Calcium 80 mg DAILY PO 01/23/25 10:00 01/28/25 10:29 80 MG Docusate Sodium 100 mg BID PO 01/24/25 22:00 01/27/25 11:23 100 MG Ondansetron HCl 4 mg Q4HPRN PRN IV 01/25/25 21:15 01/25/25 22:18 4 MG Meclizine HCl 25 mg Q8HPRN PRN PO 01/26/25 14:45 01/28/25 10:35 25 MG laboratory and microbiology Laboratory Tests 01/27/25 08:52 Test 01/27/25 08:52 Range/Units Serum Glucose 226 H 74-106 mg/dL Assessment/Plan - Acute multifocal ischemic stroke, likely cardioembolic - History of atrial flutter - NSTEMI s/p cardiac cath - Chronic vertigo, probable peripheral vestibulopathy - Obesity Consider starting anticoagulation for stroke prophylaxis ( patient has elevated [id number] score). Follow up echo results. Maintain aggressive risk factor modification. MARTINA SPRAGUE MD Jan 28, 2025 14:14
== END 2025-01-28 16:23 | disposition home health service (06) | DRG 280 ==
LOC: EDBD 14:36 → ER 14:36 → OVERFLOW 17:13 → TELE-WESTW 22:08
PROVIDERS: ADMIT Internal Medicine; ATTEND Internal Medicine
PROC: B211YZZ Fluoroscopy of Multiple Coronary Arteries using Other Contrast (ICD-10-PCS; principal; 2025-01-25)
PROC: 4A023N7 Measurement of Cardiac Sampling and Pressure, Left Heart, Percutaneous Approach (ICD-10-PCS; 2025-01-25)
DX: I21.4 Non-ST elevation (NSTEMI) myocardial infarction (principal); I63.49 Cerebral infarction due to embolism of other cerebral artery; I42.8 Other cardiomyopathies; Z68.42 Body mass index [BMI] 45.0-49.9, adult; I45.10 Unspecified right bundle-branch block; I12.9 Hypertensive chronic kidney disease with stage 1 through stage 4 chronic kidney disease, or unspecified chronic kidney disease; E11.65 Type 2 diabetes mellitus with hyperglycemia; E11.22 Type 2 diabetes mellitus with diabetic chronic kidney disease; N18.9 Chronic kidney disease, unspecified; E66.01 Morbid (severe) obesity due to excess calories; E78.5 Hyperlipidemia, unspecified; I48.91 Unspecified atrial fibrillation; J98.4 Other disorders of lung; Z86.711 Personal history of pulmonary embolism; Z82.49 Family history of ischemic heart disease and other diseases of the circulatory system; Z79.84 Long term (current) use of oral hypoglycemic drugs; Z79.82 Long term (current) use of aspirin
CPT/HCPCS: 36415; 70450; 70496; 70498; 70551; 71045; 80048; 80061; 82962; 83036; 83735; 84443; 84484; 85025; 85610; 85730; 93005; 93306; 93458; 96365; 96372; 99291; G0378; J1815; J2250; J2405; J2543; Q9967

== ENCOUNTER 2025-02-03 08:46 | Emergency (ER) | payer OTHER ==
[~2025-02-03] VITALS: Ht 182.9 cm; Wt 127.3 kg
[~2025-02-03 08:46] MED LIST changes: +ALBU108A5 IN; +APIX5TAB PO; -ASPI-543 PO; +ATOR20TA50 PO; -CEPH500C PO; +IBUP-1454 PO; +LEVO500T91 PO; +MECL25CH38 PO; -METR-344 PO; +PANT1INJ3 IV; -PRAV20TA3 PO
[2025-02-03] MEDS ORDERED: EPINEPHrine HCL 1 MG/10 ML SYRG IV ONE (08:47)
[2025-02-03 09:01] VITALS: BP 0/0; RESP 0; O2SAT 0
--- NOTE | 2025-02-03 09:05 | ED.PDOC ---
CPR-HPI HPI Comments This is a 69 year old male AHSAN presenting to the ED with chief complaint of cardiac arrest. EMS reports that the patient had called 911 for SOB this morning, noting that upon their arrival patient was alert and oriented. EMS relays that the patient then took a deep breath and went unresponsive at 0815. EMS states that the patient was noted to be in PEA throughout, being given 6 rounds of Epinephrine, 1 amp of Sodium Bicarb, intubated, and given an IO. EMS notes patient had CPR performed for 30 minutes prior to their arrival to the ED. EMS reports that the patient has history of DM and HTN. Time Seen by MD: 08:45 Primary Care Provider: MADDIE Reviewed Notes: Nurses Notes, Shove Up Notes, Medications, Allergies Allergies: Coded Allergies: NO KNOWN ALLERGIES (Unverified , 01/27/13) Home Meds Active Scripts Apixaban Base (ELIQUIS) 5 Mg Tab, 5 MG PO BID for 30 Days, #60 TAB 1 Refill Prov:DAVIDE PIMENTEL DO 01/28/25 Atorvastatin Calcium (ATORVASTATIN CALCIUM) 20 Mg Tab, 80 MG PO DAILY for 90 Days, #360 TAB 1 Refill Prov:DAVIDE PIMENTEL DO 01/28/25 Meclizine HCl (Meclizine) 25 Mg Chw, 25 MG PO TIDP PRN for 30 Days, #90 CHW 1 Refill Prov:YESY GREGG MD 01/26/25 Albuterol Sulfate (Albuterol Sulfate Hfa) 108 Mcg/Act Aer, 108 MCG IN Q4HPRN PRN, #1 AER Prov:YESY GREGG MD 01/22/25 Levofloxacin Hemihydrate (LEVAQUIN 500 MG) 500 Mg Tab, 1 TAB PO DAILY, #10 TAB Prov:YESY GREGG MD 01/22/25 Hydrocodone-Acetaminophen (Hydrocodone Bitartrate/AC 5-325 mg) 1 Tab Tab, 1 TAB PO Q6HP PRN, #14 TAB Prov:RAYSA CHEUNG MD 01/24/24 Lancets (Freestyle Lancets) Lancets Mis, UNITS XX PRN, #30 0 Refills Prov:FRANSICO REARDON MD 05/14/21 Metformin Hydrochloride (Metformin Hcl) 1,000 Mg Tab, 1 TAB PO BID for 14 Days, #28 TAB 0 Refills Prov:FRANSICO REARDON MD 05/14/21 Reported Medications Ibuprofen (Ibuprofen) 600 Mg Tab, 1 TAB PO TID, #90 TAB 01/22/25 Metformin Hydrochloride (Metformin Hcl) 1,000 Mg Tab, 1 TAB PO BID, #60 TAB 5 Refills 01/22/25 Pantoprazole Sodium (PANTOPRAZOLE SODIUM) 40 Mg Inj, 40 MG IV, INJ 01/22/25 Amlodipine Besylate (NORVASC TABLET) 5 Mg Tb, 1 TAB PO DAILY, #30 TAB 5 Refills 01/19/24 Gabapentin (Gabapentin) 100 Mg Cap, 100 MG PO DAILY for NEUROPATHY, MG 09/07/22 Enalapril Maleate (Enalapril Maleate) 20 Mg Tab, DAILY for HTN 01/27/13 Glipizide (Glipizide) 10 Mg Tab, PO BID 07/23/12 Discontinued Reported Medications Pravastatin Sodium (PRAVACHOL TABLET) 20 Mg Tb, 40 MG PO QPM for HIGH CHOLESTEROL, TAB 09/07/22 Aspirin (Aspir-Low) 81 Mg Tab, 81 MG PO DAILY for PREVENT BLOOD CLOTS, MG 09/07/22 Information Source: Emergency Med Personnel Mode of Arrival: EMS Timing: Minutes Duration: Down time prior EMS: (0), Total time prior hopital: (30 minutes) Onset: At rest, Witnessed Available Hx: Prior Cardiac Disease, Other (DM, HLD) Inital rhythm: PEA Treatment: CPR, Intubation, Epinephrine, Other (Bicarb) Response: No response Associated signs and symptoms: Dyspnea Past Medical History PAST MEDICAL HISTORY: DM, High Lipids, HTN, PE Surgical History: Denies all surgeries Family History Family History: Reviewed,noncontributory to illness Social History Smoker: Non-Smoker Alcohol: Denies ETOH Use Drugs: Denies Drug Use Lives In: Home Unable to Obtain due to: Medical Urgency, Intubated All Other Systems: Reviewed and Negative Physical Exam General Appearance: Other (CPR in progress) HEENT: Other (Pupils fixed and dilated) Neck: Normal Inspection Respiratory: Other (Intubated) Cardiovascular: Other (CPR in progress) Breast Exam: Deferred Gastrointestinal: No Organomegaly Genitalia: Deferred Pelvic: Deferred Rectal: Deferred Extremities: No pedal edema Neurologic: Other (Patient unresponsive) Cerebellar Function: NOT DONE Reflexes: NOT DONE Skin: Cyanosis Lymphatic: NOT DONE Was a procedure done? Was a procedure done?: No Differential Dx CPR Differential Diagnosis: Cardiopulmonary arrest, Myocardial Infarction X-Ray, Labs, Meds, VS Vital Signs Date Time Temp Pulse Resp B/P (MAP) Pulse Ox O2 Delivery O2 Flow Rate FiO2 02/03/25 09:22 Ambu-Bag 0 50 02/03/25 09:11 97.5 0 97.5 02/03/25 09:06 Room Air* 0 21 02/03/25 09:01 97.0 0 0 0/0 (0) 0 97.0 Time of 1ST Reevaluation: 08:52 Reevaluation 1ST: Patient . Patient Education/Counseling: Pt Unresponsive Family Education/Counseling: No Family Present SEPSIS Sepsis Screen Vital Signs Date Time Temp Pulse Resp B/P (MAP) Pulse Ox O2 Delivery O2 Flow Rate FiO2 02/03/25 09:22 Ambu-Bag 0 50 02/03/25 09:11 97.5 0 97.5 02/03/25 09:06 Room Air* 0 21 02/03/25 09:01 97.0 0 0 0/0 (0) 0 97.0 Departure 1 Departure Time of Disposition: 13:01 (Patient presented in cardiac arrest. ACLS per protocols. Patient ultimately .) Impression: Primary Impression: Cardiac arrest Disposition: 20 Condition: Other () Critical Care Note Critical Care Time?: No Heart Score Heart Score: Heart Score Response (Comments) Value History N/A 0 EKG N/A 0 Age N/A 0 Risk Factors N/A 0 Troponin N/A 0 Total 0 Stability Stability form required: No I personally scribed for KAROL JIMENEZ MD ([email or web address]) on 02/03/25 at 09:05. Electronically submitted by Flako Esteban ([email or web address]). KAROL JIMENEZ MD Feb 03, 2025 09:05
[2025-02-03 09:11] VITALS: PULSE 0; TEMP 97.5
--- NOTE | 2025-02-03 09:22 | RESUS ---
CODE BLUE ASSESSSMENT History of Events History of Events: BROUGHT IN VIA EMS WITH CPR IN PROGRESS. PER EMS, PATIENT WAS WITNESS TO HAVE BECOME ALTERED AND THEN TOOK A DEEP BREATH, THEN FELL TO THE FLOOR. STATES CPR WAS STARTED IMMEDIATELY. RECEIVED 6 ROUNDS OF EPI, 1 CALCIUM, AND 4 BICARBS PRIOR TO ARRIVAL. Initial Information Date: Feb 03, 2025 Time: 08:44 Location of Arrest: In Field Arrest Witnessed: Yes CPR started initial time: 08:15 CPR started by whom: EMS Pre-Hospital Care: ACLS Type of arrest: Cardiac Spontaneous Respirations: No Pulse Present: No Monitoring: ECG, Pulse Oximetry, Capnography Crash Cart Opened and Supplies: Yes Airway Ventilation Breathing at Onset: Assisted O2 Sat by Pulse Oximetry: 50 Oxygen Delivery Method: Ambu-Bag Artificial Ventilation: Bag/Endo tube Intubated by: EMS Confirmation: Auscultation Circulation Circulation #1: Time: 08:47 Pulse Rate (adult): 0 Blood Pressure Systolic: 0 Blood Pressure Diastolic: 0 Temperature (Fahrenheit): 97.0 Circulation Comment: NO PULSE PEA Circulation #2: Time: 08:49 Pulse Rate (adult): 0 Blood Pressure Systolic: 0 Blood Pressure Diastolic: 0 Circulation Comment: PEA NO PULSE Circulation #3: Time: 08:51 Pulse Rate (adult): 0 Blood Pressure Systolic: 0 Blood Pressure Diastolic: 0 Circulation Comment: PEA Procedure - IV Procedure - IV #1: IV start time: 08:49 IV Side: Right IV Location: Hand IV Catheter Type: Saline Lock IV Placed: In Hospital IV Gauge: 20 IV Line Care: Saline Flush Procedure - IV #2: IV start time: 08:50 IV Side: Left IV Location: Antecubital IV Catheter Type: Saline Lock IV Placed: In Hospital IV Gauge: 20 IV Line Care: Saline Flush Procedure - Intraosseous Site of Intraosseous: Tibia gio-medial Comment: ESTABLISHED BY EMS Medications & Response Medications and Responses #1: Medication Time: 08:45 ADULT Medications Given ADULT: Epinephrine 1 mg Route of Administration: IO Heart Rate: 0 EKG Rhythm: PEA Blood Pressure Systolic: 0 Blood Pressure Diastolic: 0 Respiratory Rate: 0 O2 Sat by Pulse Oximetry: 0 EKG Rhythm: PEA Medications and Responses #2: Medication Time: 08:47 ADULT Medications Given ADULT: Magnesium Sulfate 2 gm Route of Administration: IO EKG Rhythm: PEA Blood Pressure Systolic: 0 Respiratory Rate: 0 O2 Sat by Pulse Oximetry: 0 EKG Rhythm: PEA Medications and Responses #3: Medication Time: 08:48 ADULT Medications Given ADULT: Sodium Bacarbinate 50 meq Route of Administration: IO Heart Rate: 0 EKG Rhythm: PEA Blood Pressure Systolic: 0 Respiratory Rate: 0 O2 Sat by Pulse Oximetry: 0 EKG Rhythm: PEA Medications and Responses #4: Medication Time: 08:49 ADULT Medications Given ADULT: Epinephrine 1 mg Route of Administration: IO Heart Rate: 0 EKG Rhythm: PEA Blood Pressure Systolic: 0 Blood Pressure Diastolic: 0 Respiratory Rate: 0 O2 Sat by Pulse Oximetry: 0 EKG Rhythm: PEA Medications and Responses #5: Medication Time: 08:50 ADULT Medications Given ADULT: Sodium Bacarbinate 50 meq Route of Administration: IO Heart Rate: 0 EKG Rhythm: PEA Blood Pressure Systolic: 0 Blood Pressure Diastolic: 0 Respiratory Rate: 0 O2 Sat by Pulse Oximetry: 0 EKG Rhythm: PEA Nurses Notes Teri Coma Scale Eye Opening: None (1) Teri Coma Scale Verbal: None (1) Teri Coma Scale Motor: None (1) Pupil Reaction: Non Reactive Bedside Blood Glucose: 271 EKG Rhythm: PEA Time Code Ended Time Code Ended: 08:52 Post Arrest Status: Outcome of code: Unsuccessful Time patient pronounced: 08:52 Code Team Present: VERONIQUE RENDON RT, NEO RN, DAVE RN, BOBBI RN, SHAWN RN, MANI EMT, ODRIS EMT, SHAWN SHEETS RN Feb 03, 2025 09:22
== END 2025-02-03 08:52 ==
LOC: EDBD 08:46 → ER 08:46
DX: I46.9 Cardiac arrest, cause unspecified (principal); E11.9 Type 2 diabetes mellitus without complications; I10 Essential (primary) hypertension; E78.5 Hyperlipidemia, unspecified; Z79.899 Other long term (current) drug therapy; Z79.82 Long term (current) use of aspirin; Z79.01 Long term (current) use of anticoagulants; Z79.1 Long term (current) use of non-steroidal anti-inflammatories (NSAID); Z79.84 Long term (current) use of oral hypoglycemic drugs
CPT/HCPCS: 82947; 92950; 99285; J0169; J3475